=== PATIENT | female | born 1985 | race Hispanic/Latino ===

== ENCOUNTER 2018-09-21 21:42 | Emergency (ER) | payer OTHER ==
[2018-09-21 21:48] VITALS: BP 152/100
[2018-09-21 22:37] LABS: Hematocrit 41.1 % (30.3-42.9); Mean Corpuscular HGB Conc 34 % (30-34); Mean Corpuscular Volume 88 fl (79-97); Platelet Count 373 K/mm3 (140-440); Red Blood Count 4.65 M/mm3 (3.65-5.03); Red Cell Distribution Width 13.9 % (13.2-15.2)
[2018-09-21 23:11] LABS: BUN/Creatinine Ratio 22; Blood Urea Nitrogen 11 mg/dL (7-17); Calcium 9.8 mg/dL (8.4-10.2); Hemolysis Index 9
--- NOTE | 2018-09-21 23:51 | Emergency Department Report ---
ED Female HPI - General Chief complaint: Abdominal Pain Stated complaint: ABDOMINAL PAIN Source: patient Mode of arrival: Ambulatory Limitations: No Limitations - History of Present Illness Initial comments: This is a 33-year-old female presents with abnormal uterine bleeding and left lower quadrant pain. Patient reports menses 2-3 times per month. She was seen by her WET PRESS TENDER and after is prescribed ibuprofen for pelvic pain. Patient states she had surgery a few years back to remove scar tissue from C- sections which possibly caused pain. She believes the pain has returned. She reports pain as a stabbing sensation to left lower quadrant and currently 8 out of 10 on pain scale. She reports pain of 6 ability to have intercourse. There is some nausea. She denies vaginal discharge, frequency, urgency, dysuria, chest pain, or shortness of breath. MD Complaint: vaginal discharge, pelvic pain -: month(s) Location: LLQ Radiation: non-radiating Severity: moderate Severity scale (0 -10): 8 Quality: stabbing Consistency: intermittent Improves with: none Worsens with: intercourse Are you Now?: No Last Menstrual Period: 09/19/18 EDC: 06/26/19 Associated Symptoms: vaginal bleeding, abdominal pain. denies: vaginal discharge, nausea/vomiting, fever/chills, headaches, loss of appetite, dysuria, hematuria, rash, seizure, shortness of breath, syncope, weakness - Related Data Sexually active: Yes : 3 Para: 3 A: 0 Previous Rx's Medication Instructions Recorded Last Taken Type traMADol [Ultram 50 MG tab] 50 mg PO Q6HR PRN #12 tablet 09/22/18 Unknown Rx Allergies Allergy/AdvReac Type Severity Reaction Status Date / Time No Known Allergies Allergy Unverified 09/22/18 00:51 ED Review of Systems ROS: Stated complaint: ABDOMINAL PAIN Other details as noted in HPI Constitutional: denies: chills, fever Respiratory: denies: cough, shortness of breath, wheezing Cardiovascular: denies: chest pain, palpitations Gastrointestinal: abdominal pain. denies: nausea, diarrhea Genitourinary: abnormal menses. denies: urgency, dysuria, discharge Musculoskeletal: denies: back pain, joint swelling, arthralgia Neurological: denies: headache, weakness, paresthesias Psychiatric: denies: anxiety, depression ED Past Medical Hx - Past Medical History Hx Hypertension: Yes Hx Asthma: Yes - Surgical History Hx Cholecystectomy: Yes Additional Surgical History: 3 c sections and tubal ligation, appendix removal, hernia surgery - Social History Smoking Status: Never Smoker - Medications Home Medications: Home Medications Medication Instructions Recorded Confirmed Last Taken Type traMADol [Ultram 50 MG tab] 50 mg PO Q6HR PRN #12 tablet 09/22/18 Unknown Rx ED Physical Exam - General Limitations: No Limitations General appearance: alert, in no apparent distress, obese (morbidly obese) - Respiratory Respiratory exam: Present: normal lung sounds bilaterally. Absent: respiratory distress - Cardiovascular Cardiovascular Exam: Present: regular rate, normal rhythm. Absent: systolic murmur, diastolic murmur, rubs, gallop - GI/Abdominal GI/Abdominal exam: Present: soft, tenderness (left lower quadrant tenderness), normal bowel sounds. Absent: distended, guarding, rebound, rigid, organomegaly, mass - Back Exam Back exam: Absent: CVA tenderness (R), CVA tenderness (L) - Neurological Exam Neurological exam: Present: alert, oriented X3 - Psychiatric Psychiatric exam: Present: normal affect, normal mood - Skin Skin exam: Present: warm, dry, intact, normal color. Absent: rash ED Course Vital Signs 09/21/18 09/21/18 21:46 21:51 Temperature 97.2 F L 97 F L Pulse Rate 88 87 Respiratory 18 18 Rate Blood Pressure 152/100 152/100 O2 Sat by Pulse 98 98 Oximetry ED Medical Decision Making - Lab Data Result diagrams: 09/21/18 22:07 09/21/18 22:07 Lab Results 09/21/18 09/21/18 09/21/18 Range/Units 22:07 22:07 Unknown WBC 9.8 (4.5-11.0) K/mm3 RBC 4.65 (3.65-5.03) M/mm3 Hgb 14.0 (10.1-14.3) gm/dl Hct 41.1 (30.3-42.9) % MCV 88 (79-97) fl MCH 30 (28-32) pg MCHC 34 (30-34) % RDW 13.9 (13.2-15.2) % Plt Count 373 (140-440) K/mm3 Sodium 141 (137-145) mmol/L Potassium 4.4 (3.6-5.0) mmol/L Chloride 105.0 (98-107) mmol/L Carbon Dioxide 22 (22-30) mmol/L Anion Gap 18 mmol/L BUN 11 (7-17) mg/dL Creatinine 0.5 L (0.7-1.2) mg/dL Estimated GFR > 60 ml/min BUN/Creatinine Ratio 22 % Glucose 95 (65-100) mg/dL Calcium 9.8 (8.4-10.2) mg/dL Urine Color Yellow (Yellow) Urine Turbidity Clear (Clear) Urine pH 5.0 (5.0-7.0) Ur Specific [place] 1.021 (1.003-1.030) Urine Protein <15 mg/dl (Negative) mg/dL Urine Glucose (UA) Neg (Negative) mg/dL Urine Ketones Neg (Negative) mg/dL Urine Blood Lg (Negative) Urine Nitrite Neg (Negative) Ur Reducing Substances Not Reportable Urine Bilirubin Neg (Negative) Urine Ictotest Not Reportable Urine Urobilinogen < 2.0 (<2.0) mg/dL Ur Leukocyte Esterase Neg (Negative) Urine WBC (Auto) 2.0 (0.0-6.0) /HPF Urine RBC (Auto) 2.0 (0.0-6.0) /HPF U Epithel Cells (Auto) 3.0 (0-13.0) /HPF Urine Bacteria (Auto) 1+ (Negative) /HPF Urine Mucus Few /HPF Urine HCG, Qual Negative (Negative) - Radiology Data Radiology results: report reviewed FINAL REPORT EXAM: US PELVIS DUPLEX DOPPLER COMP HISTORY: LLQ tenderness, r/o ovarian torsion. TECHNIQUE: Transabdominal sonographic evaluation was performed of the female pelvis with and without color Doppler imaging. PRIORS: None. FINDINGS: The uterine myometrium is unremarkable with no focal lesion identified. The endometrial stripe is normal in thickness with no focal lesions identified. Survey of the adnexal regions reveal normal flow to both ovaries. No focal ovarian lesion appreciated. No free fluid within the posterior cul-de-sac. Measurements: Uterus: 9.1 x 3.2 x 5.0 cm Endometrial stripe: 3.5 mm Right ovary: 2.2 x 1.6 x 2.4 cm Left ovary: 2.3 x 2.2 x 2.1 cm. IMPRESSION: Unremarkable pelvic ultrasound, no evidence of ovarian torsion as queried. EXAM: CT ABDOMEN PELVIS WO CON HISTORY: LLQ tenderness. TECHNIQUE: CT evaluation performed of the abdomen and pelvis without IV or oral contrast administration. Coronal and sagittal imaging also provided for interpretation. PRIORS: Pelvic ultrasound obtained the same day. FINDINGS: Lower thorax: The lung bases are clear. The visualized portions of the heart are normal. Liver: No focal lesions identified of the liver. Hepatic steatosis. No intrahepatic biliary ductal dilation. Gallbladder/ biliary system: Surgical absence of the gallbladder. Spleen: No splenic lesions are seen. Pancreas: No pancreatic lesions are seen. No pancreatic duct dilation. Kidneys: No kidney lesions identified. 5-7 mm left inferior renal pelvis calculi. Adrenal glands: No adrenal masses. Vasculature: The abdominal and pelvic vasculature demonstrates an unremarkable noncontrasted appearance. Lymph nodes: No enlarged lymph nodes are seen in the abdomen or pelvis. Bowel, mesentery, peritoneum: No bowel obstruction. No colonic diverticulosis. No free intra- abdominal fluid or air. Urinary bladder: No calculi or wall thickening. Pelvis: Normal anatomy is noted. No masses. Abdominal wall: Focal soft tissue thickening at the anterior margin of the left inferior rectus abdominus (axial image 168). No focal fluid collection. Correlation with exam requested. Additional mild probable scarring in the ventral info infraumbilical soft tissues. Bones: No acute osseous abnormality. IMPRESSION: 5-7 mm left inferior pole renal calculi. The proximal renal pelvis is minimally prominent, however there are no ureteral calculi or dilation of the ureter. No acute inflammatory change of the gastrointestinal tract or adjacent to the pelvic viscera. Hepatic steatosis. Probable anterior central and left abdominal soft tissue scarring. - Medical Decision Making Patient was examined by me. Vitals are normal and patient is in no acute distress. Obtained labs, ultrasound of pelvic, and CT of abdomen and pelvis. All labs are unremarkable. Given tramadol 50 mg by mouth once while in ER. Radiograph dictated by radiologist report reviewed by myself. Unremarkable pelvic ultrasound, no evidence of ovarian torsion as queried. 5-7 mm left inferior pole renal calculi. The proximal renal pelvis is minimally prominent, however there are no ureteral calculi or dilation of the ureter. No acute inflammatory change of the gastrointestinal tract or adjacent to the pelvic viscera. Hepatic steatosis. Probable anterior central and left abdominal soft tissue scarring. Patient informed of results. Start tramadol for pain. Referral to urology for continued care. Plan discussed with patient to discharge home and treat outpatient. Patient discharged home in stable condition. Follow up with PCP in 2-3 days. Critical care attestation.: If time is entered above; I have spent that time in minutes in the direct care of this critically ill patient, excluding procedure time. ED Disposition Clinical Impression: Renal calculi, Left sided abdominal pain Disposition: TO HOME OR SELFCARE Is pt being admited?: No Does the pt Need Aspirin: No Condition: Stable Instructions: Abdominal Pain (ED) Additional Instructions: Increase fluid intake. Follow up with urology. Prescriptions: traMADol [Ultram 50 MG tab] 50 mg PO Q6HR PRN #12 tablet PRN Reason: Pain Referrals: FATMATA BRITT MD [Primary Care Provider] - 3-5 Days MALCOLM TEMPLETON MD [Staff Physician] - 3-5 Days [facility] [Provider Group] - 3-5 Days Forms: Work/School Release Form(ED) Time of Disposition: 02:03
[2018-09-22 00:21] LABS: HCG Qualitative,Urine Negative (Negative)
[2018-09-22 00:23] LABS: Bacteria,Urine 1+ /HPF (Negative); Bilirubin,Urine NEG (Negative); Blood,Urine LG (Negative); Color,Urine Yellow (Yellow); Mucus,Urine FEW /HPF; Protein,Urine <15 mg/dL mg/dL (Negative); Urobilinogen,Urine < 2.0 mg/dL (<2.0)
--- NOTE | 2018-09-22 01:29 | Ultrasound Report ---
FINAL REPORT EXAM: US PELVIS DUPLEX DOPPLER COMP HISTORY: LLQ tenderness, r/o ovarian torsion. TECHNIQUE: Transabdominal sonographic evaluation was performed of the female pelvis with and without color Doppler imaging. PRIORS: None. FINDINGS: The uterine myometrium is unremarkable with no focal lesion identified. The endometrial stripe is nor mal in thickness with no focal lesions identified. Survey of the adnexal regions reveal normal flow to both ovaries. No focal ovarian lesion appreciated. No free fluid within the posterior cul-de-sac. Measurements: Uterus: 9.1 x 3.2 x 5.0 cm Endometrial stripe: 3.5 mm Right ovary: 2.2 x 1.6 x 2.4 cm Left ovary: 2.3 x 2.2 x 2.1 cm. IMPRESSION: Unremarkable pelvic ultrasound, no evidence of ovarian torsion as queried.
--- NOTE | 2018-09-22 01:30 | Ultrasound Report ---
FINAL REPORT EXAM: US TRANSVAGINAL HISTORY: LLQ tenderness, r/o ovarian torsion TECHNIQUE: Transvaginal sonographic evaluation was performed of the female pelvis with and without c olor Doppler imaging. PRIORS: None. FINDINGS: The uterine myometrium is unremarkable with no focal lesion identified. The endometrial stripe is nor mal in thickness with no focal lesions identified. Survey of the adnexal regions reveal normal flow to both ovaries. No focal ovarian lesion appreciated. No free fluid within the posterior cul-de-sac. Probable scar. Measurements: Uterus: 9.1 x 3.2 x 5.0 cm Endometrial stripe: 3.5 mm Right ovary: 2.2 x 1.6 x 2.4 cm Left ovary: 2.3 x 2.2 x 2.1 cm. IMPRESSION: Unremarkable pelvic ultrasound, no evidence of ovarian torsion as queried.
--- NOTE | 2018-09-22 01:41 | Cat Scan Report ---
FINAL REPORT EXAM: CT ABDOMEN PELVIS WO CON HISTORY: LLQ tenderness. TECHNIQUE: CT evaluation performed of the abdomen and pelvis without IV or oral contrast administrat ion. Coronal and sagittal imaging also provided for interpretation. PRIORS: Pelvic ultrasound obtained the same day. FINDINGS: Lower thorax: The lung bases are clear. The visualized portions of the heart are normal. Liver: No focal lesions identified of the liver. Hepatic steatosis. No intrahepatic biliary ductal di lation. Gallbladder/ biliary system: Surgical absence of the gallbladder. Spleen: No splenic lesions are seen. Pancreas: No pancreatic lesions are seen. No pancreatic duct dilation. Kidneys: No kidney lesions identified. 5-7 mm left inferior renal pelvis calculi. Adrenal glands: No adrenal masses. Vasculature: The abdominal and pelvic vasculature demonstrates an unremarkable noncontrasted appearan ce. Lymph nodes: No enlarged lymph nodes are seen in the abdomen or pelvis. Bowel, mesentery, peritoneum: No bowel obstruction. No colonic diverticulosis. No free intra-abdomina l fluid or air. Urinary bladder: No calculi or wall thickening. Pelvis: Normal anatomy is noted. No masses. Abdominal wall: Focal soft tissue thickening at the anterior margin of the left inferior rectus abdom inus (axial image 168). No focal fluid collection. Correlation with exam requested. Additional mild p robable scarring in the ventral info infraumbilical soft tissues. Bones: No acute osseous abnormality. IMPRESSION: 5-7 mm left inferior pole renal calculi. The proximal renal pelvis is minimally prominent, however th ere are no ureteral calculi or dilation of the ureter. No acute inflammatory change of the gastrointestinal tract or adjacent to the pelvic viscera. Hepatic steatosis. Probable anterior central and left abdominal soft tissue scarring.
[2018-09-22] MEDS ORDERED: TORADOL IM ONE (02:04)
[2018-09-22] MEDS ORDERED: ULTRAM PO ONE (02:05)
== END 2018-09-22 02:15 | disposition home or self-care (01) ==
LOC: ED 21:42
DX: N20.0 Calculus of kidney (principal); I10 Essential (primary) hypertension; J45.909 Unspecified asthma, uncomplicated; Z90.49 Acquired absence of other specified parts of digestive tract
CPT/HCPCS: 36415; 74176; 76830; 80048; 81001; 81025; 85027; 93975

== ENCOUNTER 2018-12-02 07:50 | Day surgery (SDC) | payer OTHER ==
[2018-12-02] MEDS ORDERED: ZOFRAN IV PRN (09:43)
[2018-12-02] MEDS ORDERED: DILAUDID IV PRN (09:43)
[2018-12-02] MEDS ORDERED: DEMEROL IV PRN (09:43)
[2018-12-02] MEDS ORDERED: NARCAN 0.4 MG/1 ML IV PRN (09:43)
[2018-12-02] MEDS ORDERED: SUBLIMAZE IV PRN (09:43)
--- NOTE | 2018-12-02 09:43 | Anesthesia Day of Surgery ---
Anesthesia Day of Surgery - Day of Surgery Patient Examined: Yes Patient H&P Reviewed: Yes Patient is NPO: Yes Beta Blockers: No Cardiac Clearance: No Pulmonary Clearance: No
--- NOTE | 2018-12-02 09:43 | Anesthesia Consultation ---
Anesthesia Consult and Med Hx - Airway Anesthetic Teeth Evaluation: Good ROM Head & Neck: Adequate Mental/Hyoid Distance: Adequate Mallampati Class: Class II Intubation Access Assessment: Good - Pulmonary Exam CTA: Yes - Cardiac Exam Cardiac Exam: RRR - Pre-Operative Health Status ASA Pre-Surgery Classification: ASA3 Proposed Anesthetic Plan: General - Pulmonary Hx Smoking: No Hx Asthma: Yes (INHALER PRN) Hx Sleep Apnea: No - Cardiovascular System Hx Hypertension: (NO MEDS) - Other Systems Hx Cancer: No
[2018-12-02] MEDS ORDERED: LACTATED RINGERS 1,000 ML IV SCH (10:00)
[2018-12-02] MEDS ORDERED: TRANSDERM-SCOP TD NR (10:00)
[2018-12-02] MEDS ORDERED: ANCEF/STERILE WATER 2 GM/20 ML IV NR (10:00)
[2018-12-02] MEDS ORDERED: VERSED IV NR (10:00)
[2018-12-02] MEDS ORDERED: DILAUDID ONE (11:04)
[2018-12-02] MEDS ORDERED: DIPRIVAN 10 MG/ML IV ONE (11:04)
[2018-12-02] MEDS ORDERED: XYLOCAINE MPF 2% ONE (11:04)
--- NOTE | 2018-12-02 11:55 | Short Stay Summary ---
Short Stay Documentation Date of service: 12/02/18 - History H&P: obtained from office - Allergies and Medications Current Medications: Allergies aspirin Allergy (Verified 11/22/18 14:42) Itching Home Medications Medication Instructions Recorded Confirmed Last Taken Type ALBUTEROL Inhaler(NF) [VENTOLIN 1 puff IH PRN PRN 11/22/18 11/22/18 Unknown History Inhaler(NF)] Active Medications Cefazolin Sodium (Ancef/Sterile Water 2 Gm/20 Ml) 2 gm IV PREOP NR Stop: 12/02/18 13:00 Fentanyl (Sublimaze) 50 mcg IV Q5MIN PRN PRN Reason: Pain , Severe (7-10) Stop: 12/02/18 20:00 Hydromorphone HCl (Dilaudid) 0.5 mg IV Q10MIN PRN PRN Reason: Pain , Severe (7-10) Stop: 12/02/18 20:00 Lactated Ringer's (Lactated Ringers) 1,000 mls @ 42 mls/hr IV DIRECT MAGALY Last Admin: 12/02/18 09:50 Dose: 42 mls/hr Documented by: Meperidine HCl (Demerol) 25 mg IV ONCE PRN PRN Reason: Shivering Midazolam HCl (Versed) 2 mg IV PREOP NR Stop: 12/02/18 23:59 Last Admin: 12/02/18 11:03 Dose: 2 mg Documented by: Naloxone HCl (Narcan 0.4 Mg/1 Ml) 0.1 mg IV Q2MIN PRN PRN Reason: Res Rate </= 8 or 02 SAT < 92% Ondansetron HCl (Zofran) 4 mg IV ONCE PRN PRN Reason: Nausea And Vomiting Scopolamine (Transderm-Scop) 1 each TD PREOP NR Stop: 12/02/18 16:00 Last Admin: 12/02/18 10:13 Dose: 1 each Documented by: - Brief post op/procedure progress note Date of procedure: 12/02/18 Pre-op diagnosis: left renal stones x2----6& 8mm Post-op diagnosis: same Procedure: ESWL Anesthesia: GETA Surgeon: MALCOLM TEMPLETON Estimated blood loss: minimal Condition: stable - Hospital course Hospital course: VOLODYMYR OCONNOR, POST OP INFO ON CHART - Disposition Condition at discharge: Stable Disposition: DC-01 TO HOME OR SELFCARE Short Stay Discharge Plan Follow up with: FATMATA BRITT MD [Primary Care Provider] - 7 Days
[2018-12-02] MEDS ORDERED: ZOFRAN ONE (12:07)
[2018-12-02] MEDS ORDERED: BENADRYL ONE (12:14)
[2018-12-02] MEDS ORDERED: BENADRYL IV ONE (12:44)
--- NOTE | 2018-12-02 13:20 | Operative Report ---
PREOPERATIVE DIAGNOSIS: Left renal calculi x 2. POSTOPERATIVE DIAGNOSIS: Left renal calculi x 2. PROCEDURE: Extracorporal shock wave lithotripsy (stage procedure). SURGEON: Bhavin Woo MD ANESTHESIA: General. ESTIMATED BLOOD LOSS: Minimal. FLUIDS: Crystalloid. COMPLICATIONS: No complications. INDICATIONS: This patient is a 33-year-old female seen by Dr. Stokes in the office and was found to have 2 stones in the left kidney, 6 mm and 8 mm. Discussed options and she agreed to proceed with surgical intervention. DESCRIPTION OF PROCEDURE: The patient was taken to the operative suite and placed in the supine position. After adequate general anesthesia, her stones were localized in 2 planes using fluoroscopy. They were actually close in distance and therefore could be treated together. Extracorporal shock wave lithotripsy was administered with a maximum kV of 7 2500 shocks with 5-minute renal pause after 200 shocks was performed. Adequate fragmentation could be appreciated. The patient tolerated the procedure well. She was extubated and taken to recovery room. She will go home on [place] and strain her urine for stone. JOB# [id number] ALEXAC/NTS
[2018-12-02] MEDS ORDERED: NORCO 5/325 PO PRN (14:24)
[2018-12-02] MEDS ORDERED: PERCOCET 5/325 ONE (14:29)
--- NOTE | 2018-12-02 14:31 | Post Anesthesia Evaluation ---
- Post Anesthesia Evaluation Patient Participated: Yes Airway Patent: Yes Stable Respiratory Function: Yes Nausea/Vomiting: No Temp > 96.8F: Yes Pain Manageable: Yes Adequeate Hydration: Yes Anesthesia Complications: No
[2018-12-02 14:44] VITALS: BP 105/54
== END 2018-12-02 07:51 | disposition home or self-care (01) ==
LOC: OR 07:50
PROVIDERS: ATTEND Urology
DX: N20.0 Calculus of kidney (principal); G43.909 Migraine, unspecified, not intractable, without status migrainosus; J45.909 Unspecified asthma, uncomplicated; F41.9 Anxiety disorder, unspecified; K21.9 Gastro-esophageal reflux disease without esophagitis; Z98.51 Tubal ligation status; Z88.6 Allergy status to analgesic agent; Z90.49 Acquired absence of other specified parts of digestive tract; Z79.899 Other long term (current) drug therapy; Z98.890 Other specified postprocedural states; Z98.891 History of uterine scar from previous surgery
CPT/HCPCS: 50590; 81025; J0690; J1170; J1200; J2250; J2405; J2704; J7120

== ENCOUNTER 2019-03-01 14:23 | Day surgery (SDC) | payer OTHER ==
[2019-03-01] MEDS ORDERED: LACTATED RINGERS 1,000 ML IV SCH (15:55)
[2019-03-01] MEDS ORDERED: LACTATED RINGERS 1,000 ML ONE (16:09)
[2019-03-01] MEDS ORDERED: TRANSDERM-SCOP TD NR (16:15)
[2019-03-01] MEDS ORDERED: VERSED IV NR (16:15)
[2019-03-01] MEDS ORDERED: ANCEF/STERILE WATER 2 GM/20 ML IV NR (16:30)
[2019-03-01] MEDS ORDERED: SUBLIMAZE IV PRN (16:42)
--- NOTE | 2019-03-01 16:44 | Anesthesia Consultation ---
Anesthesia Consult and Med Hx Date of service: 03/01/19 - Airway Anesthetic Teeth Evaluation: Good ROM Head & Neck: Adequate Mental/Hyoid Distance: Adequate Mallampati Class: Class III Intubation Access Assessment: Possibly Difficult - Pulmonary Exam CTA: Yes - Cardiac Exam Cardiac Exam: RRR - Pre-Operative Health Status ASA Pre-Surgery Classification: ASA3 Proposed Anesthetic Plan: General - Pulmonary Hx Asthma: Yes (last inhaler use in December 2018) Hx Respiratory Symptoms: No Hx Sleep Apnea: No - Cardiovascular System Hx Hypertension: Yes Hx Heart Attack/AMI: No - Central Nervous System Hx Seizures: No CVA: No Hx Back Pain: Yes (FROM STONE) - Gastrointestinal Hx Gastroesophageal Reflux Disease: No - Endocrine Hx Renal Disease: No Hx Liver Disease: No Hx Insulin Dependent Diabetes: No Hx Non-Insulin Dependent Diabetes: No Hx Thyroid Disease: No - Other Systems Hx Obesity: Yes - Additional Comments Anesthesia Medical History Comments: Hx PONV which responded well to scopolamine patch.
--- NOTE | 2019-03-01 16:44 | Anesthesia Day of Surgery ---
Anesthesia Day of Surgery - Day of Surgery Patient Examined: Yes Patient H&P Reviewed: Yes Patient is NPO: Yes
[2019-03-01] MEDS ORDERED: ZOFRAN ONE ×2 (18:22→20:37)
[2019-03-01] MEDS ORDERED: SUBLIMAZE ONE (18:22)
[2019-03-01] MEDS ORDERED: DIPRIVAN 10 MG/ML IV ONE (18:22)
[2019-03-01] MEDS ORDERED: DECADRON ONE (18:22)
[2019-03-01] MEDS ORDERED: OMNIPAQUE 300 MG/50 ML (CATH LAB) IV ONE (19:08)
--- NOTE | 2019-03-01 20:05 | Short Stay Summary ---
Short Stay Documentation Date of service: 03/01/19 - History H&P: obtained from office - Allergies and Medications Current Medications: Allergies aspirin Allergy (Verified 11/22/18 14:42) Itching silk tape Allergy (Uncoded 03/01/19 16:27) Itching Home Medications Medication Instructions Recorded Confirmed Last Taken Type ALBUTEROL Inhaler(NF) [VENTOLIN 1 puff IH PRN PRN 11/22/18 02/23/19 Unknown History Inhaler(NF)] HYDROcodone/APAP 5-325 [[place] 1 each PO Q6HR PRN 02/23/19 03/01/19 02/22/19 09:00 History 5/325] Loratadine [Claritin] 10 mg PO DAILY 02/23/19 03/01/19 02/28/19 09:00 History Ranitidine HCl [Zantac] 150 mg PO BID 02/23/19 03/01/19 02/24/19 09:00 History traMADol [Ultram] 50 mg PO Q4HR PRN 02/23/19 03/01/19 02/22/19 09:00 History Active Medications Cefazolin Sodium (Ancef/Sterile Water 2 Gm/20 Ml) 2 gm IV PREOP NR Stop: 03/01/19 23:59 Fentanyl (Sublimaze) 50 mcg IV Q5MIN PRN PRN Reason: Pain , Severe (7-10) Lactated Ringer's (Lactated Ringers) 1,000 mls @ 75 mls/hr IV DIRECT MAGALY Last Admin: 03/01/19 16:10 Dose: 75 mls/hr Documented by: Midazolam HCl (Versed) 2 mg IV PREOP NR Stop: 03/01/19 23:59 Last Admin: 03/01/19 16:39 Dose: 2 mg Documented by: Scopolamine (Transderm-Scop) 1 each TD PREOP NR Stop: 03/01/19 23:59 Last Admin: 03/01/19 16:20 Dose: 1 each Documented by: - Brief post op/procedure progress note Date of procedure: 03/01/19 Pre-op diagnosis: left low back pain left renal stone Post-op diagnosis: same Procedure: left urs, laser frag, stent 6x26 Anesthesia: GETA Findings: lower polse stone, ?mild upj; hydro Surgeon: FARZANA HUERTA Estimated blood loss: minimal Pathology: none Condition: stable - Hospital course Hospital course: [facility]pac[place] - Disposition Condition at discharge: Good Disposition: DC-01 TO HOME OR SELFCARE Short Stay Discharge Plan Activity: advance as tolerated Follow up with: FARZANA HUERTA MD [Staff Physician] - 7 Days
[2019-03-01] MEDS ORDERED: REGLAN IV ONE (20:36)
[2019-03-01] MEDS ORDERED: REGLAN ONE (20:37)
[2019-03-01] MEDS ORDERED: ZOFRAN IV ONE (20:37)
[2019-03-01] MEDS ORDERED: BENADRYL ONE (20:48)
[2019-03-01] MEDS ORDERED: BENADRYL IV ONE (21:00)
[2019-03-01 21:34] VITALS: BP 122/82
--- NOTE | 2019-03-01 22:40 | Post Anesthesia Evaluation ---
- Post Anesthesia Evaluation Patient Participated: Yes Airway Patent: Yes Stable Respiratory Function: Yes Nausea/Vomiting: Yes (improved with IV antiemetics) Temp > 96.8F: Yes Pain Manageable: Yes Adequeate Hydration: Yes Anesthesia Complications: No
--- NOTE | 2019-03-02 09:45 | Fluoroscopy Report ---
13 fluoroscopic images submitted Indication: Intraoperative localization Impression: 13 images of the abdomen were submitted for documentation purposes with radiology emeterio farias. Bilateral retrograde urography submitted. Please refer to the operative note for complete det ails. Fluoroscopic time: 1 minute 49 seconds Signer Name: Rell Wilson MD Signed: 03/02/2019 9:40 AM Workstation Name: [id number]
--- NOTE | 2019-03-14 14:09 | Operative Report ---
PREOPERATIVE DIAGNOSIS: Left renal stone in mild ureteropelvic junction. POSTOPERATIVE DIAGNOSIS: Left renal stone in mild ureteropelvic junction. PROCEDURES: Cystoscopy; left ureteroscopy; left renal stone Holmium laser fragmentation. Left ureteral stone, Holmium laser fragmentation and left ureteral stent placement. SURGEON: Parth Stokes MD ANESTHESIA: General. SPECIMENS: None. ESTIMATED BLOOD LOSS: Minimal. COMPLICATIONS: None. FINDINGS: Left renal lower pole stone. ESTIMATED BLOOD LOSS: Minimal. CLINICAL INDICATIONS: The patient was counseled on RCBA, antibiotics, SCDs. The patient had history of left back pain, was counseled that left back pain, nonobstructive stone was non-genitourinary, not from the source, discussed we could electively treat, attempted shock wave lithotripsy, did not break it up but discussed option of observation. The patient wanted very aggressive treatment, wanted to go ahead and proceed with ureteroscopy to try to break up the stone. To break up the stone further, the patient has undergone shock wave lithotripsy previously with some fragmentation, some passage, but had two stones, 6 and 8 mm originally. DESCRIPTION OF PROCEDURE: The patient was transferred to the OR suite in supine position, anesthesia, dorsal lithotomy, prepped and draped in our standard fashion. A 22-Czech scope passed, normal vaginal urethra. Pancystoscopy 30 and 70-degree lens demonstrated no tumors, lesions or other abnormality. Right retrograde pyelogram within normal limits. Left retrograde pyelogram with maybe some renal pelvis ____ and some calyceal fullness, possible mild UPJ. Glidewire passed. Second wire passed, Glidewire passed. One Glidewire was then passed, 0.035 Glidewire. Rigid ureteroscope was passed up the ureter up towards the UPJ could visualize through the UPJ. UPJ just seemed mildly narrow, but not excessively narrow, but some fullness of the collecting system and calyceal fullness. At this point, a second wire was placed. Flexible scope was passed up to the renal pelvis, inspected the upper and mid pole calices very well. No stones and inspected the lower pole calyces. It was at an angle that was difficult to access. We were able to see the portion of the stone. Holmium laser fiber passed. The stone was fragmented into smaller and smaller pieces, seemed to be adequately fragmented into very small pieces and when visualization was limited at this point, the procedure was stopped. Scope withdrawn. Wire backloaded on the cystoscope. A 6-Czech double-J stent was passed over the wire under direct and fluoroscopic visualization. When the wire and string was removed, there was nice proximal J, nice distal J within the bladder, bladder drained. The patient awakened and transferred to PACU in good and stable condition. PLAN: This was staged for future stent removal. JOB# [id number] ATS/NTS
== END 2019-03-01 14:24 | disposition home or self-care (01) ==
LOC: OR 14:23
PROVIDERS: ATTEND Urology
DX: N20.2 Calculus of kidney with calculus of ureter (principal); I10 Essential (primary) hypertension; G43.909 Migraine, unspecified, not intractable, without status migrainosus; F41.9 Anxiety disorder, unspecified; E66.9 Obesity, unspecified; J45.909 Unspecified asthma, uncomplicated; Z87.440 Personal history of urinary (tract) infections; Z88.6 Allergy status to analgesic agent; Z88.8 Allergy status to other drugs, medicaments and biological substances; Z79.899 Other long term (current) drug therapy; Z90.49 Acquired absence of other specified parts of digestive tract; Z98.51 Tubal ligation status; Z90.710 Acquired absence of both cervix and uterus; Z68.41 Body mass index [BMI] 40.0-44.9, adult; Z98.890 Other specified postprocedural states
CPT/HCPCS: 52356; 74420; C1726; C1758; C1769; C2617; J1100; J1200; J2250; J2405; J2704; J2765; J3010; J7120; Q9967

== ENCOUNTER 2019-03-21 14:51 | Inpatient (IN) | payer OTHER ==
[2019-03-21] MEDS ORDERED: NACL 0.9% 500 ML 500 ML IV ONE (16:10)
[2019-03-21] MEDS ORDERED: DILAUDID IV ONE (16:10)
[2019-03-21] MEDS ORDERED: ZOFRAN IV ONE (16:10)
--- NOTE | 2019-03-21 16:14 | Emergency Department Report ---
<CRYS HOLLINGSWORTH - Last Filed: 03/21/19 19:49> ED Abdominal Pain HPI - General Chief Complaint: Abdominal Pain Stated Complaint: KIDNEY STONES Time Seen by Provider: 03/21/19 16:02 Source: patient, RN notes reviewed, old records reviewed Mode of arrival: Ambulatory Limitations: No Limitations - History of Present Illness Initial Comments: This is a 33-year-old female. This patient is not known to this provider previously. Her urology specialist is Dr. Peacock Has a history of obesity, and kidney stones. Also has a history of asthma, migraines, hypertension, appendectomy, cholecystectomy, tubal ligation Patient was taken to the operating room by the aforementioned urology specialist on 03/14/2019. Patient had a cystoscopy, left ureteroscopy, left renal stone laser fragmentation, and left ureteral stent placement. Apparently, patient has been having chronic left-sided back pain, and was counseled that her left back pain was likely not due to her nonobstructive kidney stone. The patient had requested elective treatment, and shock wave lithotripsy was performed, and did not break up the stone. Patient reportedly want very aggressive treatment, and agreed to proceed with ureteroscopy to break up the stone. Patient had a left retrograde pyelogram performed, which showed some possible calyceal fullness, p ossible mild UPJ. The UPJ was documented is seeming mildly narrowed, but not excessively narrow. The stone was fragmented into smaller pieces, and was documented to be adequately fragmented into small pieces, and the procedure was subsequently terminated. Today, the patient presents to the ER with a complaint of nontraumatic left- sided flank pain. The pain started last night. It is sharp and radiates to the left lower quadrant. It is intermittent. It increases with palpation. It decreases with rest. No fevers. Positive nausea and vomiting. No dysuria. Patient denies other complaints. MD Complaint: flank pain, other -: Gradual, hour(s) Location: L flank Radiation: LLQ Severity: moderate Quality: cramping, other Consistency: other Improves With: rest Worsens With: other Context: recent surgery/procedure Associated Symptoms: nausea, vomiting. denies: fever, chills - Related Data Home Medications Medication Instructions Recorded Confirmed Last Taken ALBUTEROL Inhaler(NF) [VENTOLIN 1 puff IH PRN PRN 11/22/18 02/23/19 Unknown Inhaler(NF)] HYDROcodone/APAP 5-325 [[place] 1 each PO Q6HR PRN 02/23/19 03/01/19 02/22/19 09:00 5/325] Loratadine [Claritin] 10 mg PO DAILY 02/23/19 03/01/19 02/28/19 09:00 Ranitidine HCl [Zantac] 150 mg PO BID 02/23/19 03/01/19 02/24/19 09:00 traMADol [Ultram] 50 mg PO Q4HR PRN 02/23/19 03/01/19 02/22/19 09:00 Previous Rx's Medication Instructions Recorded Last Taken Type HYDROcodone/APAP 10-325 [[place] 0.5 - 1 each PO Q6HR PRN #30 tablet 03/01/19 Unknown Rx 10-325 mg TAB] cefUROXime [Ceftin] 500 mg PO Q12H #20 tablet 03/01/19 Unknown Rx Allergies Allergy/AdvReac Type Severity Reaction Status Date / Time aspirin Allergy Itching Verified 11/22/18 14:42 silk tape Allergy Itching Uncoded 03/01/19 16:27 ED Review of Systems Constitutional: malaise, weakness. denies: fever Eyes: denies: eye discharge ENT: denies: epistaxis Respiratory: denies: cough Cardiovascular: denies: chest pain Gastrointestinal: abdominal pain, nausea, vomiting Genitourinary: denies: dysuria Musculoskeletal: back pain Skin: denies: lesions Neurological: weakness Psychiatric: anxiety ED Past Medical Hx - Past Medical History Previous Medical History?: Yes Hx Hypertension: Yes Hx Heart Attack/AMI: No Hx GERD: Yes Hx Liver Disease: No Hx Renal Disease: No Hx Headaches / Migraines: Yes (MIGRAINES) Hx Seizures: No Hx Kidney Stones: Yes Hx Asthma: Yes (last inhaler use in December 2018) Hx HIV: No - Surgical History Past Surgical History?: Yes Hx Cholecystectomy: Yes Hx Appendectomy: Yes Additional Surgical History: 3 c sections and tubal ligation, appendix removal, hernia surgery - Social History Smoking Status: Former Smoker Substance Use Type: Alcohol - Medications Home Medications: Home Medications Medication Instructions Recorded Confirmed Last Taken Type ALBUTEROL Inhaler(NF) [VENTOLIN 1 puff IH PRN PRN 11/22/18 02/23/19 Unknown History Inhaler(NF)] HYDROcodone/APAP 5-325 [[place] 1 each PO Q6HR PRN 02/23/19 03/01/19 02/22/19 09:00 History 5/325] Loratadine [Claritin] 10 mg PO DAILY 02/23/19 03/01/19 02/28/19 09:00 History Ranitidine HCl [Zantac] 150 mg PO BID 02/23/19 03/01/19 02/24/19 09:00 History traMADol [Ultram] 50 mg PO Q4HR PRN 02/23/19 03/01/19 02/22/19 09:00 History HYDROcodone/APAP 10-325 [[place] 0.5 - 1 each PO Q6HR PRN #30 tablet 03/01/19 Unknown Rx 10-325 mg TAB] cefUROXime [Ceftin] 500 mg PO Q12H #20 tablet 03/01/19 Unknown Rx ED Physical Exam - General Limitations: No Limitations General appearance: alert, in distress, obese - Head Head exam: Present: atraumatic, normocephalic - Eye Eye exam: Present: normal appearance, EOMI. Absent: nystagmus - ENT ENT exam: Present: normal exam, normal orophraynx, mucous membranes moist, normal external ear exam - Neck Neck exam: Present: normal inspection, full ROM. Absent: tenderness, meningismus - Respiratory Respiratory exam: Present: normal lung sounds bilaterally. Absent: respiratory distress - Cardiovascular Cardiovascular Exam: Present: normal rhythm, tachycardia, normal heart sounds. Absent: systolic murmur, diastolic murmur, rubs, gallop - GI/Abdominal GI/Abdominal exam: Present: soft, tenderness, other (there is left lower quadrant tenderness. There is no rebound, guarding or peritoneal signs.). Absent: distended, guarding, rebound, rigid, pulsatile mass - Extremities Exam Extremities exam: Present: normal inspection, full ROM, other (2+ pulses noted in the bilateral upper, lower extremities. Compartments soft. No long bony tenderness. The pelvis is stable.). Absent: pedal edema, joint swelling, calf tenderness - Back Exam Back exam: Present: normal inspection - Neurological Exam Neurological exam: Present: alert, oriented X3, other (Extraocular movements intact. Tongue midline. No facial droop. Facial sensation intact to light touch in the V1, V2, V3 distribution bilaterally. 5 and 5 strength in 4 extremities.. Sensation is intact to light touch in 4 extremities.). Absent: motor sensory deficit - Psychiatric Psychiatric exam: Present: anxious - Skin Skin exam: Present: warm, dry, intact, normal color. Absent: rash ED Course - Reevaluation(s) Reevaluation #1: 03/21/19 17:31 Differential diagnosis, including but not limited to: Complication from ureteral stent, ureteric spasm, infection, perforation, acute on chronic back pain Assessment and plan: 33-year-old female, mildly obese, with documented history of chronic back pain, status post recent ureter procedure. She is afebrile with reassuring vital signs with the exception of tachycardia and elevated blood pressure. These are likely secondary to pain and discomfort. Patient is given hydromorphone, and she appears to be much improved. Laboratory studies have been requested, including urinalysis. CT scan of the abdomen and pelvis has been ordered. I have consulted her covering urologist, Dr. Donahue, who recommends the aforementioned and CT scan of the abdomen and pelvis and then call back. Suggest that ureteral spasm/colic may be present. Reevaluation #2: 03/21/19 19:50 Patient having continued pain, despite multiple pain medications, including hydromorphone, morphine, and intravenous lidocaine. CT scan shows the following findings: 1. Marked left pelvocaliectasis and ureterectasis despite a left ureteral stent. Nonobstructive left nephrolithiasis. 2. 6.3 cm cystic mass in the left ovary is likely ovarian. There is mild associated free fluid in the left adnexa. The left ureter appears to change caliber at the level of the cyst. 3. Moderate diffuse fatty infiltration of the liver. Discussed these findings with urology on-call, Dr. Gayla Donahue,. The CT scan documents that the stent is in good position. Dr. Donahue advises that no acute urologic intervention is required. He further advises that he will be happy to see the patient tomorrow in consultation. We both agreed no emergent urologic evaluation is indicated at this time. He further advises that nurses who work with his colleagues in his practice have indicated that "this patient likes pain medicine." Given CT scan findings, a dedicated pelvic ultrasound will be obtained. Patient is tachycardic, with a leukocytosis, therefore, ruling in for systemic inflammatory response syndrome. She will be therefore be covered empirically with fluids, antibiotics, lactic acid and blood cultures to be obtained. Gynecology rayon coner will be paged. Care will be transferred to the oncoming physician, Dr. Marcia Eldridge, to follow-up on pelvic ultrasound. Anticipate admission for pain control, serial abdominal exams, and a gynecology/urology consultation. ED Medical Decision Making - Lab Data Result diagrams: 03/21/19 17:17 03/21/19 17:17 - Radiology Data Radiology results: report reviewed, image reviewed Print Report Referring Physician: CRYS HOLLINGSWORTH Patient Name: EDILBERTO BECKETT Date of : 1985 Sex: Female Report Date: 2019-03-21 Report Status: [place] [address] Cat Scan Report Signed Patient: EDILBERTO BECKETT MR#: [id number] 1 : 1985 Acct:[id number] Age/Sex: 33 / F ADM Date: 03/21/19 Loc: ED Attending Dr: Ordering Physician: CRYS HOLLINGSWORTH MD Date of Service: 03/21/19 Procedure(s): CT abdomen pelvis w con Accession Number(s): [id number] cc: CRYS HOLLINGSWORTH MD CT abdomen pelvis w con INDICATION / CLINICAL INFORMATION: Left flank pain since last night; status post procedure with ureteral stent placement 2 weeks ago.. TECHNIQUE: All CT scans at this location are performed using CT dose reduction for ALARA by means of automated exposure control. COMPARISON: None. FINDINGS: ABDOMEN: There is a double-J left ureteral stent in good position radiographically. There are multiple small stone fragments in the lower pole left pelvicalyceal system. There is marked left pelvocaliectasis and ureterectasis despite the stent. The right kidney is normal. The gallbladder is surgically absent. There is moderate diffuse fatty infiltration of the liver. The bile ducts, pancreas, spleen, adrenal glands and bowel are normal. No adenopathy is seen. The lung bases are clear. PELVIS: There is a 6.3 cm ovoid cystic lesion in the left ovary with a slightly thickened wall. There is mild free fluid in the left adnexa. The uterus and right adnexa are unremarkable. There is no evidence of appendicitis or diverticulitis. The left ureter does not appear dilated past the level of the adnexal cyst. The distal right ureter and urinary bladder are normal. IMPRESSION: 1. Marked left pelvocaliectasis and ureterectasis despite a left ureteral stent. Nonobstructive left nephrolithiasis. 2. 6.3 cm cystic mass in the left ovary is likely ovarian. There is mild associated free fluid in the left adnexa. The left ureter appears to change caliber at the level of the cyst. 3. Moderate diffuse fatty infiltration of the liver. Signer Name: Mao Sawant MD Signed: 03/21/2019 7:35 PM Workstation Name: [id number] Transcribed By: RT Dictated By: Mao Sawant MD Electronically Authenticated By: Mao Sawant MD Signed Date/Time: 03/21/191934 ED Disposition Clinical Impression: Abdominal pain Qualifiers: Abdominal location: left lower quadrant Qualified Code(s): R10.32 - Left lower quadrant pain Disposition: DC-09 OP ADMIT IP TO THIS HOSP Is pt being admited?: Yes Condition: Good Instructions: Abdominal Pain (ED) Referrals: PRIMARY CARE, [Primary Care Provider] - 3-5 Days <JESSICA ELDRIDGE - Last Filed: 03/21/19 22:10> ED Review of Systems ROS: Stated complaint: KIDNEY STONES Other details as noted in HPI ED Course Vital Signs 03/21/19 03/21/19 03/21/19 14:55 17:08 19:27 Temperature 98.1 F Pulse Rate 108 H 101 H Respiratory 18 16 22 Rate Blood Pressure 159/109 O2 Sat by Pulse 99 100 Oximetry 03/21/19 19:30 Temperature Pulse Rate 81 Respiratory 25 H Rate Blood Pressure 137/80 O2 Sat by Pulse 100 Oximetry ED Medical Decision Making - Lab Data Result diagrams: 03/21/19 17:17 03/21/19 17:17 - Medical Decision Making Patient is a 33 years old female signed out to me by my colleague Dr. Hollingsworth. Patient presented to the ER complaining of left flank pain that started last night. CT scan of the abdomen and pelvis showed a left ovarian cyst and recommended ultrasound. Ultrasound showed a 4.5 cm complex mass in the left adnexa area. When I discuss this finding with the patient patient stated that she already know about this cyst as she was informed by her OB doctor at [facility]. Ultrasound did not show any evidence of ovarian torsion and no free fluid in the pelvis so I think this is not a cause for her current symptoms. I discussed by Dr. Hollingsworth patient will need to be admitted for pain control. I discussed the patient with , who agreed to date the patient to medical service. Critical care attestation.: If time is entered above; I have spent that time in minutes in the direct care of this critically ill patient, excluding procedure time.
[2019-03-21 17:40] LABS: Basophils # (Auto) 0.1 K/mm3 (0.0-0.1); Basophils % (Auto) 0.7 % (0.0-1.8); Eosinophils % (Auto) 0.2 % (0.0-4.3); Hematocrit 41.4 % (30.3-42.9); Hemoglobin 13.9 gm/dl (10.1-14.3); Lymphocytes # (Auto) 1.3 K/mm3 (1.2-5.4); Lymphocytes % (Auto) 9.7 % (13.4-35.0); Mean Corpuscular HGB Conc 34 % (30-34); Mean Corpuscular Volume 89 fl (79-97); Monocytes # (Auto) 0.6 K/mm3 (0.0-0.8); Monocytes % (Auto) 4.6 % (0.0-7.3); Platelet Count 403 K/mm3 (140-440); Red Blood Count 4.68 M/mm3 (3.65-5.03); Red Cell Distribution Width 14.2 % (13.2-15.2)
[2019-03-21 17:54] LABS: Alanine Aminotransferase 14 units/L (7-56); BUN/Creatinine Ratio 13; Blood Urea Nitrogen 9 mg/dL (7-17); Calcium 9.1 mg/dL (8.4-10.2); Hemolysis Index 5
[2019-03-21 17:57] LABS: INR 0.96 (0.87-1.13)
[2019-03-21 17:58] LABS: Bilirubin,Direct < 0.2 mg/dL (0-0.2)
[2019-03-21] MEDS ORDERED: MORPHINE IV ONE (18:22)
[2019-03-21] MEDS ORDERED: XYLOCAINE CARDIAC IV ONE ×2 (18:27→19:00)
[2019-03-21] MEDS ORDERED: NACL 0.9% IV SCH ×2 (19:00)
[2019-03-21] MEDS ORDERED: XYLOCAINE CARDIAC IV SCH ×2 (19:00)
[2019-03-21] MEDS ORDERED: NACL 0.9% 0 ML ONE (19:04)
--- NOTE | 2019-03-21 19:39 | Cat Scan Report ---
CT abdomen pelvis w con INDICATION / CLINICAL INFORMATION: Left flank pain since last night; status post procedure with ureteral stent placement 2 weeks ago. . TECHNIQUE: All CT scans at this location are performed using CT dose reduction for ALARA by means of automated e xposure control. COMPARISON: None. FINDINGS: ABDOMEN: There is a double-J left ureteral stent in good position radiographically. There are multipl e small stone fragments in the lower pole left pelvicalyceal system. There is marked left pelvocaliec tasis and ureterectasis despite the stent. The right kidney is normal. The gallbladder is surgically absent. There is moderate diffuse fatty infiltration of the liver. The bile ducts, pancreas, spleen, adrenal glands and bowel are normal. No adenopathy is seen. The lung ba ses are clear. PELVIS: There is a 6.3 cm ovoid cystic lesion in the left ovary with a slightly thickened wall. There is mild free fluid in the left adnexa. The uterus and right adnexa are unremarkable. There is no efrain dence of appendicitis or diverticulitis. The left ureter does not appear dilated past the level of th e adnexal cyst. The distal right ureter and urinary bladder are normal. IMPRESSION: 1. Marked left pelvocaliectasis and ureterectasis despite a left ureteral stent. Nonobstructive left nephrolithiasis. 2. 6.3 cm cystic mass in the left ovary is likely ovarian. There is mild associated free fluid in the left adnexa. The left ureter appears to change caliber at the level of the cyst. 3. Moderate diffuse fatty infiltration of the liver. Signer Name: Mao Sawant MD Signed: 03/21/2019 7:35 PM Workstation Name: [id number]
[2019-03-21] MEDS ORDERED: NACL 0.9% 1000 ML IV ONE (19:48)
[2019-03-21] MEDS ORDERED: ZOSYN/NS 4.5GM/100ML 4.5 GM/100 ML VIAL IV ONE (19:49)
--- NOTE | 2019-03-21 22:01 | Ultrasound Report ---
CLINICAL DATA: pelvic pain TECHNICAL DATA: Ultrasound, pelvic (nonobstetric), real-time with image documentation; transabdominal and transvagina l imaging with Doppler was performed. Doppler imaging demonstrates normal arterial and venous flow. FINDINGS: The uterus has been removed.. The right ovary is normal in size shape position. Complex mass present measuring 4.5 cm left ovary wi th Doppler signal. No evidence of free fluid IMPRESSION: Complex mass left adnexa recommend clinical correlation WOMEN OF REPRODUCTIVE AGE: 1. Cysts 3 cm: Normal physiologic findings; at the discretion of the interpreting physician whether o r not to describe them in the imaging report; do not need follow-up. 2. Cysts >3 and 5 cm: Should be described in the imaging report with a statement that they are almost certainly benign; do not need follow-up. 3. Cysts >5 and 7 cm: Should be described in the imaging report with a statement that they are almost certainly benign; yearly follow-up with US recommended. 4. Cysts >7 cm: Since these may be difficult to assess completely with US, further imaging with magne tic resonance (MR) or surgical evaluation should be considered. POSTMENOPAUSAL WOMEN: 1. Cysts 1 cm: Are clinically inconsequential; at the discretion of the interpreting physician whethe r or not to describe them in the imaging report; do not need follow-up. 2. Cysts >1 and 7 cm: Should be described in the imaging report with statement that they are almost c ertainly benign; yearly follow-up, at least initially, with US recommended. Some practices may opt to increase the lower size threshold for follow-up from 1 cm to as high as 3 cm. One may opt to continu e follow-up annually or to decrease the frequency of follow-up once stability or decrease in size has been confirmed. Cysts in the larger end of this range should still generally be followed on a regula r basis. 3. Cysts >7 cm: Since these may be difficult to assess completely with US, further imaging with MR or surgical evaluation should be considered.. Signer Name: Joshua Sinclair MD Signed: 03/21/2019 9:57 PM Workstation Name: [id number]
[2019-03-22] MEDS ORDERED: ZOFRAN IV PRN (00:24)
[2019-03-22] MEDS ORDERED: TYLENOL PO PRN (00:24)
[2019-03-22] MEDS ORDERED: PROAIR IH PRN (00:28)
[2019-03-22] MEDS ORDERED: PROVENTIL IH PRN (00:36)
[2019-03-22] MEDS: MORPHINE IV PRN ×5 (00:50→18:01)
[2019-03-22] MEDS ORDERED: MORPHINE ONE (00:51)
[2019-03-22] MEDS: HEPARIN SUB-Q SCH ×3 (02:07→21:39)
--- NOTE | 2019-03-22 05:32 | History and Physical Report ---
CHIEF COMPLAINT: Left lower quadrant abdominal pain. HISTORY OF PRESENT ILLNESS: The patient is a 33-year-old female presenting with left lower quadrant abdominal pain going on for about 26-48 hours. The patient states that she had surgery done on 03/14/2019 here in this hospital, when she had cystoscopy and left ureteroscopy done as well as left renal stone laser fragmentation and left ureteral stent placement all done during this hospital stay and then the patient says she has been having chronic back pain and was told that her back pain is more likely not due to her kidney stone and the patient had shockwave lithotripsy done because of kidney stone which did not succeed in breaking of the stone and after that the patient to have aggressive treatment and had ureteroscopy done to break off the stone. The patient admitted to having nausea and vomiting and chills, but denied history of fever and denied history of diarrhea, shortness of breath or chest pain. PAST MEDICAL HISTORY: Pertinent for hypertension, gastroesophageal reflux disease, migraine headaches, kidney stones, asthma. PAST SURGICAL HISTORY: Pertinent for cholecystectomy, appendectomy, 3 C-sections, tubal ligation, hernia surgery as well as shockwave lithotripsy. FAMILY HISTORY: Noncontributory. SOCIAL HISTORY: The patient is a former cigarette smoker, drinks alcohol and does not use illicit drugs. MEDICATIONS: The patient is on Ventolin 1 puff by inhalation as needed, [place] 5/325 one by mouth every 6 hours as needed for pain, loratadine 10 mg by mouth daily, ranitidine 150 mg by mouth twice daily, tramadol 50 mg by mouth every 4 hours as needed for pain and Ceftin 500 mg by mouth every 12 hours. ALLERGIES: THE PATIENT IS ALLERGIC TO ASPIRIN AND SILK TAPE. REVIEW OF SYSTEMS: CONSTITUTIONAL: There is no fever, but there are chills and no diaphoresis. HEENT: There is no headache or sore throat. CARDIOVASCULAR SYSTEM: There is no chest pain or orthopnea. RESPIRATORY SYSTEM: There is no shortness of breath or cough. GASTROINTESTINAL SYSTEM: There is left lower quadrant abdominal pain, nausea and vomiting with no diarrhea and no constipation. NEUROLOGICAL SYSTEM: There is no numbness, no dizziness, no altered mental status. MUSCULOSKELETAL SYSTEM: There is no joint pain or swelling. DERMATOLOGICAL SYSTEM: There is no skin rash or itching. GENITOURINARY SYSTEM: There is no dysuria, hematuria, or flank pain. Rest of system review is normal. PHYSICAL EXAMINATION: GENERAL: At the time of exam, the patient was found to be alert, oriented x 3, in mild distress due to left lower quadrant abdominal pain. VITAL SIGNS: At the initial time of presentation show temperature of 98.1 degrees Fahrenheit, pulse of 108, respirations 18, blood pressure 159/109, O2 sat of 99% on room air. HEENT: Showed pupils to be equal, round, reactive to light and accommodating. Extraocular muscles are intact. NECK: Supple with no JVD or carotid bruit. CARDIOVASCULAR SYSTEM: Showed normal first and second heart sounds with no gallops or murmurs. RESPIRATORY SYSTEM: Show good air entry on both sides of the lungs with no abnormal breath sounds. GASTROINTESTINAL SYSTEM: Showed abdomen to be full, soft with tenderness in the left lower quadrant area with no rebound tenderness, no organomegaly and no rigidity. NEUROLOGIC: Shows no focal deficit. MUSCULOSKELETAL SYSTEM: Show no joint swelling or tenderness. DERMATOLOGICAL SYSTEM: Show no skin rash. GENITOURINARY SYSTEM: Showing no costovertebral angle tenderness. PERTINENT LABORATORY DATA AND IMAGING STUDIES: The patient has CBC done that shows elevated white count, normal hemoglobin and normal hematocrit with CBC differential showing elevated segmented neutrophil count of 84.8 and the patient's chemistry was unremarkable. test unremarkable. Imaging studies, the patient has CT of the abdomen and pelvis done with contrast that shows marked left pelvocaliectasis and ureterectasis despite left ureteral stent. There is finding of nonobstructive left nephrolithiasis and a 6.3 cm cyst mass in the left ovary. There is mild associated free fluid in the left ureter, appears to change caliber at the level of the cyst. Moderate diffuse fatty infiltrate on the liver was also noted. Also, the patient had transvaginal ultrasound done and this shows ovarian cyst. DIAGNOSES: 1. Left lower quadrant abdominal pain. 2. Left ovarian cyst. PLAN OF CARE: 1. The patient will be admitted to medical/surgical [facility]. 2. The patient will have Urology consult with Dr. Bhavin Woo as requested by the Emergency Room physician for evaluation of left lower quadrant and left flank pain 2 weeks after stent placement. 3. The patient will have gynecological consult with Dr. Alysha Metzger for left ovarian cyst with left lower quadrant pain. 4. The patient will be on p.r.n. medications like Tylenol 650 mg by mouth every 4 hours for fever and headache and will be on IV morphine 2 mg every 3 hours as needed for pain as well as IV Zofran 4 mg every 8 hours for nausea and vomiting. 5. The patient will be on IV Zosyn 3.375 grams q.8 hours for empiric treatment of left lower quadrant pain secondary to stent placement. 6. The patient's diet will be 2 g sodium diet. 7. The patient's home medications will be started as shown in the medication reconciliation section. 8. The patient will be on IV normal saline at 100 mL an hour. JOB# [id number] OCN/JAZMIN MCKAYD
[2019-03-22] MEDS: NACL 0.9% 1000 ML 1,000 ML IV SCH ×2 (05:47→18:02)
[2019-03-22 05:56] LABS: Bacteria,Urine 2+ /HPF (Negative); Bilirubin,Urine NEG (Negative); Blood,Urine MOD (Negative); Color,Urine Yellow (Yellow); Protein,Urine <15 mg/dL mg/dL (Negative); Urobilinogen,Urine < 2.0 mg/dL (<2.0)
[2019-03-22] MEDS: ZOSYN/NS 4.5GM/100ML 4.5 GM/100 ML VIAL IV SCH ×3 (05:58→21:40)
[2019-03-22] MEDS ORDERED: ZOSYN/NS 3.375GM/50ML 3.375 GM/50 ML BAG IV SCH (06:00)
[2019-03-22] MEDS: CLARITIN PO SCH (09:38)
[2019-03-22] MEDS: PEPCID PO SCH ×2 (09:38→21:39)
[2019-03-22] MEDS ORDERED: CEFTIN PO SCH (10:00)
[2019-03-22] MEDS ORDERED: NON-FORMULARY (Ranitidine Hcl [Zantac] 150 MG) PO SCH (10:00)
--- NOTE | 2019-03-22 16:20 | Consultation ---
History of Present Illness Consult date: 03/22/19 Reason for consult: other (left ovarian cyst, flank pain PO 1 week s/p urology surgery for renal calculi) History of present illness: 33yo s/p hysterectomy for benign causes presented to ED complaining of left groin pain radiating to left flank. She is s/p evaluation and surgery by urology 02/2019 for renal calculi. Her ultrasound reveals a 4.5cm left complex cyst which upon further review are two adjoining simple cysts, likely physio logic in nature. Her right ovary is 2.2cm and uterus is surgically absent. She is s/p [facility] 12/2018 for pelvic pain by [facility]. Past History Past Medical History: hypertension, kidney stones Past Surgical History: appendectomy, cholecystectomy, section, hysterectomy Social history: Medications and Allergies Allergies Allergy/AdvReac Type Severity Reaction Status Date / Time aspirin Allergy Itching Verified 11/22/18 14:42 silk tape Allergy Itching Uncoded 03/01/19 16:27 Home Medications Medication Instructions Recorded Confirmed Last Taken Type ALBUTEROL Inhaler(NF) [VENTOLIN 1 puff IH PRN PRN 11/22/18 03/22/19 Unknown History Inhaler(NF)] HYDROcodone/APAP 5-325 [[place] 1 each PO Q6HR PRN 02/23/19 03/22/19 02/22/19 09:00 History 5/325] Loratadine [Claritin] 10 mg PO DAILY 02/23/19 03/22/19 02/28/19 09:00 History Ranitidine HCl [Zantac] 150 mg PO BID 02/23/19 03/22/19 02/24/19 09:00 History traMADol [Ultram] 50 mg PO Q4HR PRN 02/23/19 03/22/19 02/22/19 09:00 History HYDROcodone/APAP 10-325 [[place] 0.5 - 1 each PO Q6HR PRN #30 tablet 03/01/19 03/22/19 Unknown Rx 10-325 mg TAB] cefUROXime [Ceftin] 500 mg PO Q12H #20 tablet 03/01/19 03/22/19 Unknown Rx Active Meds: Active Medications Acetaminophen (Tylenol) 650 mg PO Q4H PRN PRN Reason: Fever >101 Albuterol (Proventil) 2.5 mg IH Q4HRT PRN PRN Reason: Shortness Of Breath Famotidine (Pepcid) 20 mg PO BID [facility] Last Admin: 03/22/19 09:38 Dose: 20 mg Documented by: Heparin Sodium (Porcine) (Heparin) 5,000 unit SUB-Q Q12HR MAGALY Last Admin: 03/22/19 09:45 Dose: 5,000 unit Documented by: Sodium Chloride (Nacl 0.9% 1000 Ml) 1,000 mls @ 100 mls/hr IV DIRECT MAGALY Last Admin: 03/22/19 05:47 Dose: 100 mls/hr Documented by: Piperacillin Sod/Tazobactam Sod (Zosyn/Ns 4.5gm/100ml) 4.5 gm in 100 mls @ 200 mls/hr IV Q8HR [facility]; Protocol Last Admin: 03/22/19 13:32 Dose: 200 mls/hr Documented by: Loratadine (Claritin) 10 mg PO DAILY [facility] Last Admin: 03/22/19 09:38 Dose: 10 mg Documented by: Morphine Sulfate (Morphine) 2 mg IV Q3H PRN PRN Reason: Pain, Moderate (4-6) Last Admin: 03/22/19 13:32 Dose: 2 mg Documented by: Ondansetron HCl (Zofran) 4 mg IV Q8H PRN PRN Reason: Nausea And Vomiting - Vital Signs Vital signs: Vital Signs Temp Pulse Resp BP Pulse Ox 98.1 F 108 H 18 159/109 99 03/21/19 14:55 03/21/19 14:55 03/21/19 14:55 03/21/19 14:55 03/21/19 14:55 Temp Pulse Resp BP Pulse Ox 98.3 F 76 22 107/58 96 03/22/19 13:57 03/22/19 13:57 03/22/19 13:57 03/22/19 13:57 03/22/19 13:57 - Physical Exam Abdomen: Positive: soft, other (well healing Pfannesteil incision) Results Result Diagrams: 03/21/19 17:17 03/21/19 17:17 Abnormal lab results 03/21/19 03/21/19 03/22/19 Range/Units 17:17 17:17 05:37 WBC 13.2 H (4.5-11.0) K/mm3 Lymph % (Auto) 9.7 L (13.4-35.0) % Seg Neutrophils % 84.8 H (40.0-70.0) % Seg Neutrophils # 11.2 H (1.8-7.7) K/mm3 Glucose 115 H (65-100) mg/dL Urine WBC (Auto) 7.0 H (0.0-6.0) /HPF All other labs normal. Assessment and Plan - Patient Problems (1) Ovarian cyst Current Visit: Yes Status: Acute Plan to address problem: Discussed with patient that ovarian cyst appears benign and due to size < 5cm, it is unlikely the cause of her current radiating flank pain. Likely physiologic cyst as simple and benign appearing in nature. Doppler flow identified for bilateral ovaries therefore torsion not suspected. Patient not ideal hormonal candidate for prevention of ovulation and subsequent formation of cysts due to hypertension. Recommend outpatient follow-up with repeat US in 6-8weeks. Thank you for allowing me to assist in care of this patient. Please feel free to contact me with any questions.
--- NOTE | 2019-03-22 17:18 | Progress Note ---
Assessment and Plan Assessment and plan: 33 year old female with history of asthma, migraines, obesity, kidney stone, hypertension, appendectomy, cholecystectomy, tubal ligation complaints of abdominal pain left lower quadrant for over 48 hrs. Had recent cystocscopy and left ureterscopy and laser fragmentation and left urethral stent placement. Left Lower Quadrant abdominal pain Nephrolithasis s/p Left Urethrea stent Left Ovarian cyst Morbid obesity Leukocytsis Acute cystitis Plan Continue supportive care Await TRANSFUSION NURSE and Urology eval Continue pain control Continue Abx Await Urine culture DVT/GI prophy History Interval history: Patient seen and examined, very emotional about the shooting pain she gets in her abdomen down her pelvis, concerned and upset that she is finding out she did not have a total hystrectomy. No other new complaints. Hospitalist Physical - Constitutional Vitals: Temp Pulse Resp BP Pulse Ox 98.3 F 76 22 107/58 96 03/22/19 13:57 03/22/19 13:57 03/22/19 13:57 03/22/19 13:57 03/22/19 13:57 General appearance: Present: no acute distress, well-nourished, obese (morbid) - EENT Eyes: Present: PERRL, EOM intact ENT: hearing intact, clear oral mucosa, dentition normal - Neck Neck: Present: supple, normal ROM - Respiratory Respiratory effort: normal Respiratory: bilateral: CTA - Cardiovascular Rhythm: regular Heart Sounds: Present: S1 & S2. Absent: systolic murmur - Extremities Extremities: no ischemia, pulses intact, pulses symmetrical, No edema, Full ROM Peripheral Pulses: within normal limits - Abdominal General gastrointestinal: soft, non-tender, non-distended, normal bowel sounds - Integumentary Integumentary: Present: clear, warm, dry - Psychiatric Psychiatric: appropriate mood/affect, intact judgment & insight - Neurologic Neurologic: CNII-XII intact, moves all extremities - Allied Health Allied health notes reviewed: nursing Results - Labs CBC & Chem 7: 03/21/19 17:17 03/21/19 17:17 Labs: Laboratory Last Values WBC 13.2 K/mm3 (4.5-11.0) H 03/21/19 17:17 RBC 4.68 M/mm3 (3.65-5.03) 03/21/19 17:17 Hgb 13.9 gm/dl (10.1-14.3) 03/21/19 17:17 Hct 41.4 % (30.3-42.9) 03/21/19 17:17 MCV 89 fl (79-97) 03/21/19 17:17 MCH 30 pg (28-32) 03/21/19 17:17 MCHC 34 % (30-34) 03/21/19 17:17 RDW 14.2 % (13.2-15.2) 03/21/19 17:17 Plt Count 403 K/mm3 (140-440) 03/21/19 17:17 Lymph % (Auto) 9.7 % (13.4-35.0) L 03/21/19 17:17 [place] % (Auto) 4.6 % (0.0-7.3) 03/21/19 17:17 Eos % (Auto) 0.2 % (0.0-4.3) 03/21/19 17:17 Baso % (Auto) 0.7 % (0.0-1.8) 03/21/19 17:17 Lymph # 1.3 K/mm3 (1.2-5.4) 03/21/19 17:17 [place] # 0.6 K/mm3 (0.0-0.8) 03/21/19 17:17 Eos # 0.0 K/mm3 (0.0-0.4) 03/21/19 17:17 Baso # 0.1 K/mm3 (0.0-0.1) 03/21/19 17:17 Seg Neutrophils % 84.8 % (40.0-70.0) H 03/21/19 17:17 Seg Neutrophils # 11.2 K/mm3 (1.8-7.7) H 03/21/19 17:17 PT 12.5 Sec. (12.2-14.9) 03/21/19 17:17 INR 0.96 (0.87-1.13) 03/21/19 17:17 Sodium 137 mmol/L (137-145) 03/21/19 17:17 Potassium 4.7 mmol/L (3.6-5.0) 03/21/19 17:17 Chloride 102.7 mmol/L (98-107) 03/21/19 17:17 Carbon Dioxide 24 mmol/L (22-30) 03/21/19 17:17 15 mmol/L 03/21/19 17:17 BUN 9 mg/dL (7-17) 03/21/19 17:17 0.7 mg/dL (0.7-1.2) 03/21/19 17:17 Estimated GFR > 60 ml/min 03/21/19 17:17 13 % 03/21/19 17:17 Glucose 115 mg/dL (65-100) H 03/21/19 17:17 Lactic Acid 1.30 mmol/L (0.7-2.0) 03/21/19 23:08 Calcium 9.1 mg/dL (8.4-10.2) 03/21/19 17:17 0.60 mg/dL (0.1-1.2) 03/21/19 17:17 < 0.2 mg/dL (0-0.2) 03/21/19 17:17 0.4 mg/dL 03/21/19 17:17 AST 11 units/L (5-40) 03/21/19 17:17 ALT 14 units/L (7-56) 03/21/19 17:17 63 units/L (35-129) 03/21/19 17:17 7.1 g/dL (6.3-8.2) 03/21/19 17:17 4.0 g/dL (3.9-5) 03/21/19 17:17 1.3 % 03/21/19 17:17 15 units/L (13-60) 03/21/19 17:17 HCG, Quant < 2 mIU/mL (0-4) 03/21/19 17:17 Yellow (Yellow) 03/22/19 05:37 Clear (Clear) 03/22/19 05:37 6.0 (5.0-7.0) 03/22/19 05:37 Ur Specific [place] 1.014 (1.003-1.030) 03/22/19 05:37 <15 mg/dl mg/dL (Negative) 03/22/19 05:37 Neg mg/dL (Negative) 03/22/19 05:37 Neg mg/dL (Negative) 03/22/19 05:37 Mod (Negative) 03/22/19 05:37 Neg (Negative) 03/22/19 05:37 Neg (Negative) 03/22/19 05:37 < 2.0 mg/dL (<2.0) 03/22/19 05:37 Ur Leukocyte Esterase Sm (Negative) 03/22/19 05:37 7.0 /HPF (0.0-6.0) H 03/22/19 05:37 17.0 /HPF (0.0-6.0) 03/22/19 05:37 U Epithel Cells (Auto) 3.0 /HPF (0-13.0) 03/22/19 05:37 2+ /HPF (Negative) 03/22/19 05:37 Active Medications - Current Medications Current Medications: Generic Name Dose Route Start Last Admin Trade Name Freq PRN Reason Stop Dose Admin Acetaminophen 650 mg 03/22/19 00:24 Tylenol PO Q4H PRN Fever >101 Albuterol 2.5 mg 03/22/19 00:36 Proventil IH Q4HRT PRN Shortness Of Breath Famotidine 20 mg 03/22/19 10:00 03/22/19 09:38 Pepcid PO 20 mg BID MAGALY Administration Heparin Sodium (Porcine) 5,000 unit 03/22/19 00:30 03/22/19 09:45 Heparin SUB-Q 5,000 unit Q12HR MAGALY Administration Sodium Chloride 1,000 mls @ 100 mls/hr 03/22/19 01:00 03/22/19 05:47 Nacl 0.9% 1000 Ml IV 100 mls/hr DIRECT MAGALY Administration Piperacillin Sod/Tazobactam Sod 4.5 gm in 100 mls @ 200 mls/hr 03/22/19 06:00 03/22/19 13:32 Zosyn/Ns 4.5gm/100ml IV 200 mls/hr Q8HR MAGALY Administration Protocol Loratadine 10 mg 03/22/19 10:00 03/22/19 09:38 Claritin PO 10 mg DAILY MAGALY Administration Morphine Sulfate 2 mg 03/22/19 00:24 03/22/19 13:32 Morphine IV 2 mg Q3H PRN Administration Pain, Moderate (4-6) Ondansetron HCl 4 mg 03/22/19 00:24 Zofran IV Q8H PRN Nausea And Vomiting
--- NOTE | 2019-03-22 17:31 | Progress Note ---
Assessment and Plan consult dictated has L j stent Subjective Date of service: 03/22/19 Principal diagnosis: l stent stones Objective - Constitutional Vitals: Vital Signs - 12hr 03/22/19 03/22/19 11:42 13:57 Temperature 98.3 F Pulse Rate 76 Respiratory 22 Rate Blood Pressure 107/58 O2 Sat by Pulse 98 96 Oximetry - Labs CBC & Chem 7: 03/21/19 17:17 03/21/19 17:17 Labs: Abnormal lab results 03/21/19 03/21/19 03/22/19 Range/Units 17:17 17:17 05:37 WBC 13.2 H (4.5-11.0) K/mm3 Lymph % (Auto) 9.7 L (13.4-35.0) % Seg Neutrophils % 84.8 H (40.0-70.0) % Seg Neutrophils # 11.2 H (1.8-7.7) K/mm3 Glucose 115 H (65-100) mg/dL Urine WBC (Auto) 7.0 H (0.0-6.0) /HPF Medications & Allergies - Medications Allergies/Adverse Reactions: Allergies aspirin Allergy (Verified 11/22/18 14:42) Itching silk tape Allergy (Uncoded 03/01/19 16:27) Itching Home Medications: Home Medications Medication Instructions Recorded Confirmed Last Taken Type ALBUTEROL Inhaler(NF) [VENTOLIN 1 puff IH PRN PRN 11/22/18 02/23/19 Unknown History Inhaler(NF)] HYDROcodone/APAP 5-325 [[place] 1 each PO Q6HR PRN 02/23/19 03/01/19 02/22/19 09:00 History 5/325] Loratadine [Claritin] 10 mg PO DAILY 02/23/19 03/01/19 02/28/19 09:00 History Ranitidine HCl [Zantac] 150 mg PO BID 02/23/19 03/01/19 02/24/19 09:00 History traMADol [Ultram] 50 mg PO Q4HR PRN 02/23/19 03/01/19 02/22/19 09:00 History HYDROcodone/APAP 10-325 [[place] 0.5 - 1 each PO Q6HR PRN #30 tablet 03/01/19 Unknown Rx 10-325 mg TAB] cefUROXime [Ceftin] 500 mg PO Q12H #20 tablet 03/01/19 Unknown Rx Active Medications: Generic Name Dose Route Start Last Admin Trade Name Freq PRN Reason Stop Dose Admin Acetaminophen 650 mg 03/22/19 00:24 Tylenol PO Q4H PRN Fever >101 Albuterol 2.5 mg 03/22/19 00:36 Proventil IH Q4HRT PRN Shortness Of Breath Famotidine 20 mg 03/22/19 10:00 03/22/19 09:38 Pepcid PO 20 mg BID MAGALY Administration Heparin Sodium (Porcine) 5,000 unit 03/22/19 00:30 03/22/19 09:45 Heparin SUB-Q 5,000 unit Q12HR MAGALY Administration Sodium Chloride 1,000 mls @ 100 mls/hr 03/22/19 01:00 03/22/19 05:47 Nacl 0.9% 1000 Ml IV 100 mls/hr DIRECT MAGALY Administration Piperacillin Sod/Tazobactam Sod 4.5 gm in 100 mls @ 200 mls/hr 03/22/19 06:00 03/22/19 13:32 Zosyn/Ns 4.5gm/100ml IV 200 mls/hr Q8HR MAGALY Administration Protocol Loratadine 10 mg 03/22/19 10:00 03/22/19 09:38 Claritin PO 10 mg DAILY MAGALY Administration Morphine Sulfate 2 mg 03/22/19 00:24 03/22/19 13:32 Morphine IV 2 mg Q3H PRN Administration Pain, Moderate (4-6) Ondansetron HCl 4 mg 03/22/19 00:24 Zofran IV Q8H PRN Nausea And Vomiting
--- NOTE | 2019-03-23 01:22 | Consultation ---
HISTORY OF PRESENT ILLNESS: The patient is a 33-year-old woman with a history of kidney stones. She was admitted with a slightly elevated white count. Dr. Stokes placed left stent. She has moderate hydronephrosis with the stent in position. She also was found to have an ovarian mass. She was admitted with pain. Her pain is mostly resolved. She also has stones in her kidney which were nonobstructing. She has a cyst in the left ovary. PAST MEDICAL HISTORY: Hypertension, migraines, stone, asthma. PAST SURGICAL HISTORY: Cholecystectomy, appendectomy, C-sections, tubal ligation. FAMILY HISTORY: Noncontributory. SOCIAL HISTORY: History of smoking. MEDICATIONS: Ventolin. She was on Ceftin. ALLERGIES: ASPIRIN. REVIEW OF SYSTEMS: She is improved. No nausea, vomiting. PHYSICAL EXAMINATION: GENERAL: She is awake. She is severely obese. She is in no distress. ABDOMEN: Soft, nondistended. Minimal left-sided pain. 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 She has a left stent that may need to be changed. We offered percutaneous nephrostomy if the stent is too painful. She does not want that at this time. The plan will be follow up as an outpatient. She can be discharged when there is no evidence of any infection and her pain is tolerable, which it is now. JOB# [id number] RHIANNON/JAZMIN
[2019-03-23] MEDS: ZOSYN/NS 4.5GM/100ML 4.5 GM/100 ML VIAL IV SCH ×2 (05:36→13:47)
[2019-03-23] MEDS: NACL 0.9% 1000 ML 1,000 ML IV SCH (09:45)
[2019-03-23] MEDS: HEPARIN SUB-Q SCH (09:46)
[2019-03-23] MEDS: CLARITIN PO SCH (09:46)
[2019-03-23] MEDS: PEPCID PO SCH (09:46)
[2019-03-23] MEDS: MORPHINE IV PRN (09:47)
--- NOTE | 2019-03-23 11:48 | Discharge Summary ---
Providers - Providers Date of Admission: 03/22/19 00:23 Attending physician: MELVIN FOSTER MD 03/21/19 16:10 Consult to Physician [CONS] Urgent Comment: Consulting Provider: MALCOLM TEMPLETON Physician Instructions: Reason For Exam: left sided flank pain 03/22/19 06:00 Consult to Physician [CONS] Routine Comment: Consulting Provider: HUGO BORGES Physician Instructions: Reason For Exam: LEFT FLANK PAIN WITH LEFT OVARIAN CYST Primary care physician: ITALIAN TUTOR Hospitalization Reason for admission: ABDOMINAL PAIN Condition: Good Hospital course: 33 year old female with history of asthma, migraines, obesity, kidney stone, hypertension, appendectomy, cholecystectomy, tubal ligation complaints of abdominal pain left lower quadrant for over 48 hrs. Had recent cystocscopy and left ureterscopy and laser fragmentation and left urethral stent placement. Patient was seen by urology and offered percutanous drain but refused, she was also seen by DIGITAL PHOTO PRINTER nad will follow outpatient. she feels better and reported that the clearity given by the consultants was helpful. she will continue to work on losing weight. SIRS without organ dysfunction Abdominal pain left lower quadrant Peritoneal irritation from nephrolithasis Nephrolithasis s/p Left Urethrea stent Left Ovarian cyst Morbid obesity BMI 50 Leukocytsis Acute cystitis-complete home dose abx Disposition: TO HOME OR SELFCARE Time spent for discharge: 35 mins Core Measure Documentation - Palliative Care Palliative Care/ Comfort Measures: Not Applicable - Core Measures Any of the following diagnoses?: none Exam - Physical Exam Narrative exam: General appearance: Present: no acute distress, well-nourished, obese (morbid) - EENT Eyes: Present: PERRL, EOM intact ENT: hearing intact, clear oral mucosa, dentition normal - Neck Neck: Present: supple, normal ROM - Respiratory Respiratory effort: normal Respiratory: bilateral: CTA - Cardiovascular Rhythm: regular Heart Sounds: Present: S1 & S2. Absent: systolic murmur - Extremities Extremities: no ischemia, pulses intact, pulses symmetrical, No edema, Full ROM Peripheral Pulses: within normal limits - Abdominal General gastrointestinal: soft, non-tender, non-distended, normal bowel sounds - Integumentary Integumentary: Present: clear, warm, dry - Psychiatric Psychiatric: appropriate mood/affect, intact judgment & insight - Neurologic Neurologic: CNII-XII intact, moves all extremities - Allied Health Allied health notes reviewed: nursing - Constitutional Vitals: Temp Pulse Resp BP Pulse Ox 97.8 F 57 L 18 113/71 94 03/23/19 05:16 03/23/19 05:16 03/23/19 05:16 03/23/19 05:16 03/23/19 05:16 Plan Activity: advance as tolerated, fall precautions Diet: low cholesterol Special Instructions: record daily BP diary Follow up with: PRIMARY MD FARZANA [Primary Care Provider] - 3-5 Days JERILYN SHARPE MD [Staff Physician] - 7 Days HUGO BORGES MD [Staff Physician] - 7 Days
[2019-03-23 17:10] VITALS: BP 110/70
== END 2019-03-23 18:10 | disposition home or self-care (01) | DRG 760 ==
LOC: ED 14:51 → 3A 03-22 00:23
PROVIDERS: ADMIT Internal Medicine; ATTEND Internal Medicine
DX: N83.202 Unspecified ovarian cyst, left side (principal); Z68.43 Body mass index [BMI] 50.0-59.9, adult; N30.00 Acute cystitis without hematuria; J45.909 Unspecified asthma, uncomplicated; G43.909 Migraine, unspecified, not intractable, without status migrainosus; I10 Essential (primary) hypertension; E66.01 Morbid (severe) obesity due to excess calories; D72.829 Elevated white blood cell count, unspecified; K21.9 Gastro-esophageal reflux disease without esophagitis; Z88.6 Allergy status to analgesic agent; Z87.442 Personal history of urinary calculi; Z90.49 Acquired absence of other specified parts of digestive tract; Z98.51 Tubal ligation status; Z90.710 Acquired absence of both cervix and uterus
CPT/HCPCS: 36415; 74177; 76830; 80048; 80076; 81001; 82140; 83690; 84702; 85025; 85610; 87040; 87086; 93975; 96365; 96372; 96375; 96376; G0378; J1170; J1644; J2001; J2270; J2405; J2543; J7030; J7040; Q9967

== ENCOUNTER 2019-04-28 20:12 | Emergency (ER) | payer OTHER ==
[2019-04-28 20:18] VITALS: BP 131/82
--- NOTE | 2019-04-28 21:01 | Event Note ---
ED Screening Note Date of service: 04/28/19 Time: 20:58 ED Screening Note: 33 y o female presenst with left sided pelvic pain and nausea pmh of left sided ovarian cyst denies vag bleed, motrin no relief pmh: partial hysterectomy This initial assessment/diagnostic orders/clinical plan/treatment(s) is/are subject to change based on patients health status, clinical progression and re- assessment by fellow clinical providers in the ED. Further treatment and workup at subsequent clinical providers discretion. Patient/guardian urged not to elope from the ED as their condition may be serious if not clinically assessed and managed. Initial orders include: ua,
[2019-04-28] MEDS ORDERED: ZOFRAN ODT PO ONE (22:56)
[2019-04-28] MEDS ORDERED: NORCO 10/325 PO ONE (22:56)
[2019-04-28 23:08] LABS: Bilirubin,Urine NEG (Negative); Blood,Urine NEG (Negative); Color,Urine Yellow (Yellow); Mucus,Urine FEW /HPF; Protein,Urine <15 mg/dL mg/dL (Negative); Urobilinogen,Urine < 2.0 mg/dL (<2.0)
[2019-04-28 23:32] LABS: Alanine Aminotransferase 22 units/L (7-56); BUN/Creatinine Ratio 22; Blood Urea Nitrogen 13 mg/dL (7-17); Calcium 9.1 mg/dL (8.4-10.2); Hemolysis Index 63
[2019-04-28 23:59] LABS: Basophils # (Auto) 0.1 K/mm3 (0.0-0.1); Basophils % (Auto) 0.8 % (0.0-1.8); Eosinophils # (Auto) 0.2 K/mm3 (0.0-0.4); Eosinophils % (Auto) 1.9 % (0.0-4.3); Hematocrit 41.5 % (30.3-42.9); Hemoglobin 14.2 gm/dl (10.1-14.3); Lymphocytes # (Auto) 3.1 K/mm3 (1.2-5.4); Lymphocytes % (Auto) 32.2 % (13.4-35.0); Mean Corpuscular HGB Conc 34 % (30-34); Mean Corpuscular Volume 90 fl (79-97); Monocytes # (Auto) 0.8 K/mm3 (0.0-0.8); Monocytes % (Auto) 8.7 % (0.0-7.3); Platelet Count 358 K/mm3 (140-440); Red Blood Count 4.61 M/mm3 (3.65-5.03); Red Cell Distribution Width 14.1 % (13.2-15.2)
--- NOTE | 2019-04-29 | Emergency Department Report ---
ED Female HPI - General Chief complaint: Abdominal Pain Stated complaint: ABDOMINAL PAIN Time Seen by Provider: 04/28/19 20:57 Source: patient Mode of arrival: Ambulatory Limitations: No Limitations - History of Present Illness Initial comments: This is a 33-year-old female nontoxic, well nourished in appearance, no acute signs of distress presents to the ED with c/o of nausea and vomiting and left sided pelvic pain x3 days. Patient stated this is acute on chronic intermittent pelvic pains due to ovarian cysts. Patient describes vomiting as food content and yellow gastric acid. Patient describes pelvic pain as cramping and aching with level of 3/10 mostly to left side. Patient denies chest pain, short of breath, fever, chills, headache, stiff neck, numbness or tingling. Patient denies any diarrhea or constipation. Patient denies any recent travels. Patient stated allergies to aspirin. MD Complaint: pelvic pain -: days(s) (3) Radiation: non-radiating Severity: mild Severity scale (0 -10): 3 Quality: cramping, aching Consistency: constant Improves with: none Worsens with: none Associated Symptoms: nausea/vomiting, other (left pelvic pain). denies: vaginal discharge, vaginal bleeding, abdominal pain, fever/chills, headaches, loss of appetite, dysuria, hematuria, rash, seizure, shortness of breath, syncope, weakness - Related Data Home Medications Medication Instructions Recorded Confirmed Last Taken ALBUTEROL Inhaler(NF) [VENTOLIN 1 puff IH PRN PRN 11/22/18 03/22/19 Unknown Inhaler(NF)] HYDROcodone/APAP 5-325 [[place] 1 each PO Q6HR PRN 02/23/19 03/22/19 02/22/19 09:00 5-325 mg TAB] Loratadine [Claritin] 10 mg PO DAILY 02/23/19 03/22/19 02/28/19 09:00 raNITIdine HCl [Zantac] 150 mg PO BID 02/23/19 03/22/19 02/24/19 09:00 traMADol [Ultram 50 MG tab] 50 mg PO Q4HR PRN 02/23/19 03/22/19 02/22/19 09:00 Previous Rx's Medication Instructions Recorded Last Taken Type HYDROcodone/APAP 10-325 [[place] 0.5 - 1 each PO Q6HR PRN #30 tablet 03/01/19 Unknown Rx 10-325 mg TAB] cefUROXime [Ceftin] 500 mg PO Q12H #20 tablet 03/01/19 Unknown Rx Acetaminophen/Codeine [Tylenol 1 tab PO Q6H PRN #12 tab 04/29/19 Unknown Rx /Codeine # 3 tab] Ondansetron [Zofran Odt] 4 mg PO Q8HR PRN #20 tab.rapdis 04/29/19 Unknown Rx Allergies Allergy/AdvReac Type Severity Reaction Status Date / Time aspirin Allergy Itching Verified 11/22/18 14:42 silk tape Allergy Itching Uncoded 03/01/19 16:27 ED Review of Systems ROS: Stated complaint: ABDOMINAL PAIN Other details as noted in HPI Constitutional: denies: chills, fever Eyes: denies: eye pain, eye discharge, vision change ENT: denies: ear pain, throat pain Respiratory: denies: cough, shortness of breath, wheezing Cardiovascular: denies: chest pain, palpitations Endocrine: no symptoms reported Gastrointestinal: nausea, vomiting. denies: abdominal pain, diarrhea Genitourinary: denies: urgency, dysuria, discharge Musculoskeletal: denies: back pain, joint swelling, arthralgia Skin: denies: rash, lesions Neurological: denies: headache, weakness, paresthesias Psychiatric: denies: anxiety, depression Hematological/Lymphatic: denies: easy bleeding, easy bruising ED Past Medical Hx - Past Medical History Previous Medical History?: Yes Hx Hypertension: Yes Hx Heart Attack/AMI: No Hx Congestive Heart Failure: No Hx Diabetes: No Hx GERD: Yes Hx Liver Disease: No Hx Renal Disease: No Hx Headaches / Migraines: Yes (MIGRAINES) Hx Seizures: No Hx Kidney Stones: Yes Hx Asthma: Yes (last inhaler use in December 2018) Hx COPD: No Hx HIV: No Additional medical history: Ovarian cysts. Morbid Obesity - Surgical History Past Surgical History?: Yes Hx Cholecystectomy: Yes Hx Appendectomy: Yes Additional Surgical History: 3 c sections and tubal ligation, appendix removal, hernia surgery, HYSTERECTOMY - Social History Smoking Status: Never Smoker Substance Use Type: None - Medications Home Medications: Home Medications Medication Instructions Recorded Confirmed Last Taken Type ALBUTEROL Inhaler(NF) [VENTOLIN 1 puff IH PRN PRN 11/22/18 03/22/19 Unknown History Inhaler(NF)] HYDROcodone/APAP 5-325 [[place] 1 each PO Q6HR PRN 02/23/19 03/22/19 02/22/19 09:00 History 5-325 mg TAB] Loratadine [Claritin] 10 mg PO DAILY 02/23/19 03/22/19 02/28/19 09:00 History raNITIdine HCl [Zantac] 150 mg PO BID 02/23/19 03/22/19 02/24/19 09:00 History traMADol [Ultram 50 MG tab] 50 mg PO Q4HR PRN 02/23/19 03/22/19 02/22/19 09:00 History HYDROcodone/APAP 10-325 [[place] 0.5 - 1 each PO Q6HR PRN #30 tablet 03/01/19 03/22/19 Unknown Rx 10-325 mg TAB] cefUROXime [Ceftin] 500 mg PO Q12H #20 tablet 03/01/19 03/22/19 Unknown Rx Acetaminophen/Codeine [Tylenol 1 tab PO Q6H PRN #12 tab 04/29/19 Unknown Rx /Codeine # 3 tab] Ondansetron [Zofran Odt] 4 mg PO Q8HR PRN #20 tab.rapdis 04/29/19 Unknown Rx ED Physical Exam - General Limitations: No Limitations General appearance: alert, in no apparent distress - Head Head exam: Present: atraumatic, normocephalic - Neck Neck exam: Present: normal inspection, full ROM. Absent: tenderness, meningismus, lymphadenopathy - GI/Abdominal GI/Abdominal exam: Present: soft, tenderness (left pelvic area), normal bowel sounds. Absent: distended, guarding, rebound, rigid, diminished bowel sounds - Expanded GI/Abdominal Exam Expanded GI/Abdominal exam: Absent: psoas sign, Ochoa's sign, Rovsing's sign, tenderness at Mcburney's Point, ascites - Extremities Exam Extremities exam: Present: normal inspection, full ROM - Back Exam Back exam: Present: normal inspection, full ROM. Absent: tenderness, CVA tenderness (R), CVA tenderness (L), muscle spasm, paraspinal tenderness, ve rtebral tenderness, rash noted - Neurological Exam Neurological exam: Present: alert, oriented X3, normal gait - Psychiatric Psychiatric exam: Present: normal affect, normal mood - Skin Skin exam: Present: warm, dry, intact, normal color. Absent: rash ED Course Vital Signs 04/28/19 20:16 Temperature 97.5 F L Pulse Rate 90 Respiratory 20 Rate Blood Pressure 131/82 O2 Sat by Pulse 98 Oximetry - Reevaluation(s) Reevaluation #1: 04/28/19 23:59 Patient is speaking in full sentences with no signs of distress noted. ED Medical Decision Making - Lab Data Result diagrams: 04/28/19 23:02 04/28/19 23:02 - Medical Decision Making This is a 33-year-old male that presents with left ovarian cyst and n/v. Patient is stable and was examined by me. There is no abdominal tenderness. Ne gative signs of symptoms of appendicitis. Labs obtained. UA obtained. US doppler pelvic and transvaginal obtained and dictated by the radiologist. Patient is notified of the report with no questions noted by the patient. Vital signs are stable prior to discharge. Patient received medical treatment in the ED which patient stated symptoms has resovled and subsided. Was instructed note to operate any machinery due to possible drowsiness and stated someone will drive the patient home. A by mouth challenge has been obtained and patient tolerated well with no nausea vomiting. Patient was also instructed to Follow- up with a OBGYN doctor in 3-5 days or if symptoms worsen and continue return to emergency room as soon as possible. At time of discharge, the patient does not seem toxic or ill in appearance. No acute signs of distress noted. Patient agrees to discharge treatment plan of care. No further questions noted by the patient. Critical care attestation.: If time is entered above; I have spent that time in minutes in the direct care of this critically ill patient, excluding procedure time. ED Disposition Clinical Impression: Left ovarian cyst Nausea & vomiting Qualifiers: Vomiting type: unspecified Vomiting Intractability: non-intractable Qualified Code(s): R11.2 - Nausea with vomiting, unspecified Disposition: DC-01 TO HOME OR SELFCARE Is pt being admited?: No Does the pt Need Aspirin: No Condition: Stable Instructions: Ovarian Cyst (ED), Acetaminophen/Codeine (By mouth) Additional Instructions: Follow-up with a OBGYN doctor in 3-5 days or if symptoms worsen and continue return to emergency room as soon as possible. Do not operate any machinery while taking Tylenol with codeine as this may cause drowsiness. Prescriptions: Acetaminophen/Codeine [Tylenol /Codeine # 3 tab] 1 tab PO Q6H PRN #12 tab PRN Reason: Pain , Severe (7-10) Ondansetron [Zofran Odt] 4 mg PO Q8HR PRN #20 tab.rapdis PRN Reason: Nausea Referrals: PRIMARY CARE, [Referring] - 3-5 Days CAM OKEEFE MD [Staff Physician] - 3-5 Days [facility] [Provider Group] - 3-5 Days Forms: Work/School Release Form(ED)
--- NOTE | 2019-04-29 00:38 | Ultrasound Report ---
Pelvic ultrasound performed transabdominally and endovaginally. HISTORY: Pelvic pain. COMPARISON: 03/21/2019. FINDINGS: Status post previous hysterectomy. The right ovary cannot be identified. The left ovary jayleen sures 3.9 x 3.3 x 3.7 cm in contains a 1.8 cm physiologic cyst. Previously, a complex cystic lesion w as seen at the left adnexa measuring 4.5 cm. IMPRESSION: 1. Negative for suspicious adnexal lesion. 2. Right ovary not visualized. 3. Resolution of complex cystic mass at the left ovary. A 1.8 cm cyst is present on today's exam. Signer Name: Nathan Badillo MD Signed: 04/29/2019 12:34 AM Workstation Name: [id number]
[2019-04-29] MEDS ORDERED: TYLENOL #3 PO ONE (01:26)
[2019-04-29] MEDS ORDERED: TYLENOL #3 ONE (01:29)
== END 2019-04-29 01:27 | disposition home or self-care (01) ==
LOC: ED 20:12
DX: N83.202 Unspecified ovarian cyst, left side (principal); I10 Essential (primary) hypertension; K21.9 Gastro-esophageal reflux disease without esophagitis; G43.909 Migraine, unspecified, not intractable, without status migrainosus; J45.909 Unspecified asthma, uncomplicated; Z98.51 Tubal ligation status; Z90.49 Acquired absence of other specified parts of digestive tract; Z90.710 Acquired absence of both cervix and uterus; Z79.899 Other long term (current) drug therapy; Z88.6 Allergy status to analgesic agent; Z91.048 Other nonmedicinal substance allergy status
CPT/HCPCS: 36415; 76830; 80053; 81001; 83690; 84703; 85025; 93975; 99284; Q0162

== ENCOUNTER 2019-06-23 10:47 | Day surgery (SDC) | payer OTHER ==
[~2019-06-23 10:47] MED LIST: IOHEXOL 300 MG/ML 50ML IV ONE
[2019-06-23] MEDS ORDERED: LACTATED RINGERS 1,000 ML IV SCH (13:01)
[2019-06-23] MEDS ORDERED: ONDANSETRON 4 MG/2 ML INJ IV PRN (13:36)
--- NOTE | 2019-06-23 13:36 | Anesthesia Day of Surgery ---
Anesthesia Day of Surgery - Day of Surgery Patient Examined: Yes Patient H&P Reviewed: Yes Patient is NPO: Yes
--- NOTE | 2019-06-23 13:38 | Anesthesia Consultation ---
Anesthesia Consult and Med Hx Date of service: 06/23/19 - Airway Anesthetic Teeth Evaluation: Good ROM Head & Neck: Adequate Mental/Hyoid Distance: Adequate Mallampati Class: Class II Intubation Access Assessment: Probably Good - Pre-Operative Health Status ASA Pre-Surgery Classification: ASA3 Proposed Anesthetic Plan: General - Pulmonary Hx Asthma: Yes (last inhaler use in December 2018) Hx Respiratory Symptoms: No - Cardiovascular System Hx Hypertension: Yes (No meds) - Central Nervous System Hx Back Pain: Yes (FROM STONE) Hx Psychiatric Problems: Yes - Gastrointestinal Hx Gastroesophageal Reflux Disease: No - Endocrine Hx Insulin Dependent Diabetes: No Hx Non-Insulin Dependent Diabetes: No Hx Thyroid Disease: No - Other Systems Hx Cancer: No Hx Obesity: Yes
[2019-06-23] MEDS ORDERED: SCOPOLAMINE TRANSDERMAL PATCH 72 HR TD NR (14:00)
[2019-06-23] MEDS ORDERED: MIDAZOLAM 2 MG/2 ML INJ IV NR (14:00)
[2019-06-23] MEDS ORDERED: ceFAZolin/STERILE WATER 2 GM/20 ML SYRINGE IV NR (14:16)
[2019-06-23] MEDS ORDERED: HYDROmorphone 1 MG/1 ML INJ ONE (14:29)
[2019-06-23] MEDS ORDERED: PROPOFOL 200 MG/20 ML VIAL IV ONE (14:29)
[2019-06-23] MEDS ORDERED: IOHEXOL 300 MG/ML 50ML IV ONE (14:57)
[2019-06-23] MEDS ORDERED: ONDANSETRON 4 MG/2 ML INJ ONE (15:28)
[2019-06-23] MEDS ORDERED: LIDOCAINE MPF (2%) 20 MG/1 ML VIAL 5 ML ONE (15:28)
[2019-06-23] MEDS ORDERED: dexAMETHasone 20 MG/5 ML VIAL ONE (15:28)
[2019-06-23] MEDS ORDERED: PHENYLEPHRINE 10 MG/1 ML INJ SDV ONE (15:30)
[2019-06-23] MEDS ORDERED: WATER FOR IRRIG STERILE 1,500 ML BOTTLE IR ONE (15:44)
[2019-06-23] MEDS ORDERED: WATER FOR IRRIG STERILE 2000 ML IR ONE (15:44)
[2019-06-23] MEDS: fentaNYL 100 MCG/2 ML INJ IV PRN ×2 (16:13→16:21)
--- NOTE | 2019-06-23 16:34 | Fluoroscopy Report ---
INTRAOPERATIVE FLUOROSCOPY: ABDOMEN INDICATION: LT RENAL STONE. TECHNIQUE: Intraoperative spot images were obtained during the procedure. FINDINGS: Left renal stones are seen on initial fluoroscopic imaging. Subsequent bilateral retrograde urography is unremarkable. Laser therapy was subsequently performed with placement of a left ureteral stent. Clement perez see the procedure report for further details. Fluoroscopy Time: 4.9 seconds. Fluoroscopy Images: 9. Signer Name: Montana Lemon MD Signed: 06/23/2019 4:30 PM Workstation Name: [id number]
[2019-06-23 17:06] VITALS: BP 106/60
--- NOTE | 2019-06-23 17:26 | Short Stay Summary ---
Short Stay Documentation Date of service: 06/23/19 - History H&P: obtained from office - Allergies and Medications Current Medications: Allergies aspirin Allergy (Verified 06/22/19 14:36) Itching silk tape Allergy (Uncoded 06/22/19 14:36) Itching Home Medications Medication Instructions Recorded Confirmed Last Taken Type ALBUTEROL Inhaler(NF) [VENTOLIN 2 puff IH PRN PRN 11/22/18 06/23/19 12/29/18 History Inhaler(NF)] cefUROXime [Ceftin] 500 mg PO Q12H #20 tablet 03/01/19 06/23/19 06/22/19 08:00 Rx Active Medications Cefazolin Sodium (Ancef/Sterile Water 2 Gm/20 Ml) 2 gm IV PREOP NR Stop: 06/23/19 23:59 Fentanyl (Sublimaze) 50 mcg IV Q5MIN PRN PRN Reason: Pain , Severe (7-10) Stop: 06/23/19 23:59 Last Admin: 06/23/19 16:21 Dose: 50 mcg Documented by: Lactated Ringer's (Lactated Ringers) 1,000 mls @ 100 mls/hr IV DIRECT MAGALY Stop: 06/23/19 23:59 Last Admin: 06/23/19 13:23 Dose: 100 mls/hr Documented by: Midazolam HCl (Versed) 2 mg IV PREOP NR Stop: 06/23/19 23:59 Last Admin: 06/23/19 13:41 Dose: 2 mg Documented by: Ondansetron HCl (Zofran) 4 mg IV ONCE PRN PRN Reason: Nausea And Vomiting Scopolamine (Transderm-Scop) 1 each TD PREOP NR Stop: 06/26/19 13:59 Last Admin: 06/23/19 13:41 Dose: 1 each Documented by: - Brief post op/procedure progress note Date of procedure: 06/23/19 Pre-op diagnosis: left renal stone Post-op diagnosis: same Procedure: left urs, laser, stent [id number] Anesthesia: GETA Findings: 1mm frags left after laser Surgeon: FARZANA HUERTA Estimated blood loss: minimal Pathology: none Condition: stable - Hospital course Hospital course: orpacuhome - Disposition Condition at discharge: Good Disposition: DC-01 TO HOME OR SELFCARE Short Stay Discharge Plan Activity: advance as tolerated Diet: advance as tolerated Additional Instructions: YOU MAY REMOVE THE SCOPOLAMINE PATCH IN 3 DAYS. WASH YOUR HANDS SOON REMOVING PATCH. Follow up with: FARZANA HUERTA MD [Staff Physician] - 14 Days Forms: Outpatient Surgery DC Inst.
[2019-06-23] MEDS ORDERED: HYDROcodone/ACETAMINOPHEN 10-325MG TAB PO PRN (17:49)
--- NOTE | 2019-07-13 06:59 | Operative Report ---
PREOPERATIVE DIAGNOSIS: Left renal stones, left flank pain. POSTOPERATIVE DIAGNOSIS: Left renal stones, left flank pain. PROCEDURE: Left ureteroscopy, holmium laser fragmentation, stent 7 x 26 placement. ANESTHESIA: General. FINDINGS: Multiple left renal frags after laser of 1 mm or less in a dependent position, difficult to access. SURGEON: Parth Stokes MD ESTIMATED BLOOD LOSS: Minimal. PATHOLOGY: None. CONDITION: Stable. CLINICAL INDICATIONS: The patient was counseled on RCBA, antibiotics, SCDs. She was counseled on: 1. Observation. 2. ESWL. 3. Ureteroscopy. 4. Percutaneous procedures and other options. She definitively wanted to go ahead and proceed with ureteroscopy and an increase stent size due to past mild hydro. Antibiotics, SCDs. DESCRIPTION OF PROCEDURE: The patient was transferred to OR suite in supine position, anesthesia, dorsal lithotomy, prepped and draped in standard fashion. A 22-Yi scope passed. Pancystoscopy with 30- and 70-degree lens, no abnormality. Right retrograde pyelogram with 8-Yi cone-tip catheter, normal right distal ureter, proximal ureter, renal pelvis calyces. Repeated on left side with similar normal ureter, pelvis, calyces; may be minimal fullness of the left kidney. At this point, second Glidewire was then passed under fluoroscopic direct visualization. Next, a flexible ureteroscope was passed over one of the Glidewire up to the renal pelvis. No stones in the distal ureter or proximal ureter. Next, we aspirated fluid and injected contrast and inspected upper and lower pole. In the lower pole, there were some stone fragments, some they seem when you flushed them to disperse, but some fragments that could be lasered. Laser was passed to fragment these areas into smaller and smaller pieces until only 1 mm or less fragments left. This was at the point where they were too small to grasp. Of note, contrast was injected even with the scope flexing at 180 degrees in the lower pole to check for any ____. There were some densities, which could be in bowel, which were thought to be separate from the kidney. At this point, the scope was withdrawn. Wire backloaded on the cystoscope. A 7 x 26 double-J stent was passed over the wire under direct fluoroscopic visualization. When the wire and string were removed, there was nice proximal J, nice distal J within the bladder. Bladder drained. No palpable urethral masses. The patient was awakened and transferred to PACU in good and stable condition. JOB# [id number] ATS/NTS
== END 2019-06-23 18:28 | disposition home or self-care (01) ==
LOC: OR 10:47
PROVIDERS: ATTEND Urology
DX: N20.0 Calculus of kidney (principal); G43.909 Migraine, unspecified, not intractable, without status migrainosus; J45.909 Unspecified asthma, uncomplicated; E66.9 Obesity, unspecified; F32.9 Major depressive disorder, single episode, unspecified; F41.9 Anxiety disorder, unspecified; Z88.6 Allergy status to analgesic agent; Z88.8 Allergy status to other drugs, medicaments and biological substances; Z79.899 Other long term (current) drug therapy; Z90.49 Acquired absence of other specified parts of digestive tract; Z68.41 Body mass index [BMI] 40.0-44.9, adult; Z98.51 Tubal ligation status; Z90.710 Acquired absence of both cervix and uterus; Z98.891 History of uterine scar from previous surgery; Z87.440 Personal history of urinary (tract) infections; Z98.890 Other specified postprocedural states
CPT/HCPCS: 52356; 74420; A4217; C1758; C1769; C2617; J1100; J1170; J2250; J2370; J2405; J2704; J3010; J7120; Q9967

== ENCOUNTER 2019-07-12 12:11 | Emergency (ER) | payer OTHER ==
[2019-07-12] MEDS ORDERED: SODIUM CHLORIDE 0.9% 1000 ML 1,000 ML IV ONE (13:28)
[2019-07-12] MEDS ORDERED: ONDANSETRON 4 MG/2 ML INJ IV ONE (13:28)
[2019-07-12] MEDS ORDERED: MORPHINE 4 MG/1 ML INJ IV ONE (13:28)
--- NOTE | 2019-07-12 13:33 | Event Note ---
ED Screening Note Date of service: 07/12/19 Time: 13:30 ED Screening Note: Pt complains of left abdominal pain after ureter stent stent removal x today +hematuria and vomiting This initial assessment/diagnostic orders/clinical plan/treatment(s) is/are subject to change based on patients health status, clinical progression and re- assessment by fellow clinical providers in the ED. Further treatment and workup at subsequent clinical providers discretion. Patient/guardian urged not to elope from the ED as their condition may be serious if not clinically assessed and managed. Initial orders include:
[2019-07-12 16:18] LABS: Hematocrit 44.2 % (30.3-42.9); Hemoglobin 14.5 gm/dl (10.1-14.3); Mean Corpuscular HGB Conc 33 % (30-34); Mean Corpuscular Volume 89 fl (79-97); Platelet Count 391 K/mm3 (140-440); Red Cell Distribution Width 14.2 % (13.2-15.2)
[2019-07-12 16:33] LABS: BUN/Creatinine Ratio 23; Blood Urea Nitrogen 14 mg/dL (7-17); Calcium 9.2 mg/dL (8.4-10.2); Hemolysis Index 13
[2019-07-12] MEDS ORDERED: HYDROmorphone 2 MG/1 ML INJ IV ONE (16:33)
--- NOTE | 2019-07-12 16:35 | Emergency Department Report ---
ED General Adult HPI - General Chief complaint: Abdominal Pain Stated complaint: ABD PAIN/STINT REMOVED Time Seen by Provider: 07/12/19 13:27 Source: patient, RN notes reviewed, old records reviewed Mode of arrival: Ambulatory Limitations: No Limitations - History of Present Illness Initial comments: This is a 34-year-old female. I have evaluated this patient in the past. She does not have a primary care doctor. Her urologist is : Jerrell Peacock I saw this patient in February 2019. She has a history of obesity, kidney stones, asthma, migraine, hypertension, appendectomy, tubal ligation, cholecystectomy. In short, she has chronic left-sided flank and back pain, known kidney stones, and has had extensive and multiple evaluations by urological services. Her urologist of record has offered the pain in the past that her back pain is very very unlikely to be related to stone disease The patient states that she had her left sided renal stent taken out this morning at an outpatient surgical center by her urologist. She states that afterwards, she developed acute on chronic left flank pain and left lower quadrant pain, nausea and vomiting. No fevers. No dysuria. No additional complaints. -: Sudden Location: back, abdomen Radiation: abdomen, flank Severity scale (0 -10): 9 Quality: aching Consistency: constant Improves with: medication, rest Worsens with: movement - Related Data Home Medications Medication Instructions Recorded Confirmed Last Taken ALBUTEROL Inhaler(NF) [VENTOLIN 2 puff IH PRN PRN 11/22/18 06/23/19 12/29/18 Inhaler(NF)] Previous Rx's Medication Instructions Recorded Last Taken Type cefUROXime [Ceftin] 500 mg PO Q12H #20 tablet 03/01/19 06/22/19 08:00 Rx HYDROcodone/APAP 10-325 [[place] 0.5 - 1 each PO Q6HR PRN #25 tablet 06/23/19 Un known Rx 10-325 mg TAB] HYDROcodone/APAP 5-325 [[place] 1 each PO Q6HR PRN #30 tablet 06/23/19 Unknown Rx 5-325 mg TAB] Metoclopramide [Reglan] 10 mg PO QID PRN #30 tablet 07/12/19 Unknown Rx Promethazine HCl [Phenergan SUPPOS] 25 mg RC Q6HR PRN #15 supp.rect 07/12/19 Unknown Rx levoFLOXacin [Levaquin] 750 mg PO QDAY #10 tablet 07/12/19 Unknown Rx oxyCODONE /ACETAMINOPHEN [Percocet 1 tab PO Q6HR PRN #10 tablet 07/12/19 Unknown Rx 5/325] Allergies Allergy/AdvReac Type Severity Reaction Status Date / Time aspirin Allergy Itching Verified 06/22/19 14:36 silk tape Allergy Itching Uncoded 06/22/19 14:36 ED Review of Systems ROS: Stated complaint: ABD PAIN/STINT REMOVED Other details as noted in HPI Constitutional: denies: fever Eyes: denies: eye discharge ENT: denies: congestion Respiratory: denies: wheezing Cardiovascular: denies: syncope Gastrointestinal: abdominal pain, nausea, vomiting Genitourinary: denies: dysuria Musculoskeletal: back pain Skin: denies: lesions Neurological: weakness Psychiatric: anxiety Hematological/Lymphatic: denies: easy bleeding ED Past Medical Hx - Past Medical History Previous Medical History?: Yes Hx Hypertension: Yes (No meds) Hx GERD: Yes Hx Headaches / Migraines: Yes (MIGRAINES) Hx Kidney Stones: Yes Hx Asthma: Yes (last inhaler use in December 2018) Additional medical history: Ovarian cysts. Morbid Obesity - Surgical History Past Surgical History?: Yes Hx Cholecystectomy: Yes Hx Appendectomy: Yes Additional Surgical History: 3 c sections and tubal ligation, appendix removal, hernia surgery, HYSTERECTOMY - Social History Smoking Status: Never Smoker Substance Use Type: None - Medications Home Medications: Home Medications Medication Instructions Recorded Confirmed Last Taken Type ALBUTEROL Inhaler(NF) [VENTOLIN 2 puff IH PRN PRN 11/22/18 06/23/19 12/29/18 History Inhaler(NF)] cefUROXime [Ceftin] 500 mg PO Q12H #20 tablet 03/01/19 06/23/19 06/22/19 08:00 Rx HYDROcodone/APAP 10-325 [[place] 0.5 - 1 each PO Q6HR PRN #25 tablet 06/23/19 Unknown Rx 10-325 mg TAB] HYDROcodone/APAP 5-325 [[place] 1 each PO Q6HR PRN #30 tablet 06/23/19 Unknown Rx 5-325 mg TAB] Metoclopramide [Reglan] 10 mg PO QID PRN #30 tablet 07/12/19 Unknown Rx Promethazine HCl [Phenergan SUPPOS] 25 mg RC Q6HR PRN #15 supp.rect 07/12/19 Unknown Rx levoFLOXacin [Levaquin] 750 mg PO QDAY #10 tablet 07/12/19 Unknown Rx oxyCODONE /ACETAMINOPHEN [Percocet 1 tab PO Q6HR PRN #10 tablet 07/12/19 Unknown Rx 5/325] ED Physical Exam - General Limitations: No Limitations General appearance: alert, anxious, in distress, obese - Head Head exam: Present: atraumatic, normocephalic - Eye Eye exam: Present: normal appearance, EOMI. Absent: nystagmus - ENT ENT exam: Present: normal exam, normal orophraynx, mucous membranes moist, normal external ear exam - Neck Neck exam: Present: normal inspection, full ROM. Absent: tenderness, meningismu s - Respiratory Respiratory exam: Present: normal lung sounds bilaterally. Absent: respiratory distress - Cardiovascular Cardiovascular Exam: Present: normal rhythm, tachycardia, normal heart sounds. Absent: systolic murmur, diastolic murmur, rubs, gallop - GI/Abdominal GI/Abdominal exam: Present: soft, tenderness, other (there is left flank tenderness. There is left lower quadrant tenderness. There is no rebound, guarding or peritoneal sign.). Absent: distended, guarding, rigid, pulsatile mass - Extremities Exam Extremities exam: Present: normal inspection, full ROM, other (2+ pulses noted in the bilateral upper, lower extremities. There is no long bone tenderness. Musculoskeletal compartments are soft. The pelvis is stable.). Absent: pedal edema, joint swelling, calf tenderness - Back Exam Back exam: Present: normal inspection, full ROM, CVA tenderness (L), paraspinal tenderness. Absent: CVA tenderness (R), vertebral tenderness - Neurological Exam Neurological exam: Present: alert, other (there is no facial droop. The tongue is midline. Extraocular movements are intact bilaterally. Patient speaking in full complete sentences. Shoulder shrug is intact bilaterally. Hearing is grossly intact bilaterally. Visual acuity intact to finger counting and color perception at a close distance. 5/5 strength 4 extremities. Sensation intact to light touch in 4 extremities.). Absent: motor sensory deficit - Psychiatric Psychiatric exam: Present: anxious - Skin Skin exam: Present: warm, dry, intact, normal color. Absent: rash ED Course Vital Signs 07/12/19 07/12/19 13:27 16:09 Temperature 97.3 F L Pulse Rate 96 H 87 Respiratory 20 17 Rate Blood Pressure 155/100 Blood Pressure 152/87 [Left] O2 Sat by Pulse 98 99 Oximetry - Reevaluation(s) Reevaluation #1: 07/12/19 18:04 Differential diagnosis, including but not limited to: Ureteral spasm, laceration, infection, bleeding, damage to adjacent structures, retained stone Assessment and plan: 34-year-old female with recurrent left-sided flank pain. I have evaluated this patient in the past for similar complaints. She is afebrile with reassuring vital signs and tachycardia has resolved. After aggressive therapy with hydromorphone, she is sleeping comfortably, in his stretcher, with no active vomiting, and she is in no acute distress. Screening laboratory studies are reviewed and appreciated. Leukocytosis is likely secondary to a stress reaction. I contacted her urologist on-call, Dr. Peacock, and we talked about her history, physical. We both familiar with this patient. We will obtain CT scan of the abdomen pelvis, screening laboratory studies, urinalysis and reassess. If no acute surgical injury is identified on CT scan, her urologist has agreed to follow the patient up closely as an outpatient. Reevaluation #2: 07/12/19 19:43 Patient is reevaluated multiple times. She is sleeping comfortably at this time, and in no acute distress. Urinalysis reveals a sterile pyuria. CT scan abdomen pelvis does not appear to demonstrate any acute emergent condition at this time. Chronic findings are noted. Contacted her urologist of record, Dr. Jerrell Peacock He is agreeable to ceftriaxone/antibiotics at this time, indicates that pyuria is expected with instrumentation and stent. 07/12/19 21:31 Patient observed in this department for an extended a prolonged period of time. No active vomiting noted. Vital signs remained stable. We discussed with her private urologist, Dr. Peacock He is agreeable to see the patient tomorrow or in 2 days for repeat checkup and evaluation. He is agreeable to antibiotic therapy. We discussed her laboratory studies, CT scan findings. Reevaluation #3: 07/12/19 21:40 Patient eating ice chips. Playing on her cellular phone. Indicates that she feels improved. ED Medical Decision Making - Lab Data Result diagrams: 07/12/19 15:50 07/12/19 15:50 Vital Signs 07/12/19 07/12/19 13:27 16:09 Temperature 97.3 F L Pulse Rate 96 H 87 Respiratory 20 17 Rate Blood Pressure 155/100 Blood Pressure 152/87 [Left] O2 Sat by Pulse 98 99 Oximetry Lab Results 07/12/19 07/12/19 07/12/19 Range/Units 15:50 15:50 16:33 WBC 14.7 H (4.5-11.0) K/mm3 RBC 5.00 (3.65-5.03) M/mm3 Hgb 14.5 H (10.1-14.3) gm/dl Hct 44.2 H (30.3-42.9) % MCV 89 (79-97) fl MCH 29 (28-32) pg MCHC 33 (30-34) % RDW 14.2 (13.2-15.2) % Plt Count 391 (140-440) K/mm3 Sodium 138 (137-145) mmol/L Potassium 4.1 (3.6-5.0) mmol/L Chloride 105.1 (98-107) mmol/L Carbon Dioxide 18 L (22-30) mmol/L Anion Gap 19 mmol/L BUN 14 (7-17) mg/dL Creatinine 0.6 L (0.7-1.2) mg/dL Estimated GFR > 60 ml/min BUN/Creatinine Ratio 23 % Glucose 112 H (65-100) mg/dL Calcium 9.2 (8.4-10.2) mg/dL Magnesium 2.10 (1.7-2.3) mg/dL Total Creatine Kinase 43 (30-135) units/L - Radiology Data Radiology results: report reviewed, image reviewed Print Report Referring Physician: CRYS ARREDONDO Patient Name: EDILBERTO BECKETT Date of : 1985 Sex: Female Report Date: 2019-07-12 Report Status: Finalized Findings [facility] [address] [place] [address] Cat Scan Report Signed Patient: EDILBERTO BECKETT MR#: [id number] 1 : 1985 Acct:[id number] Age/Sex: 34 / F ADM Date: 07/12/19 Loc: ED Attending Dr: Ordering Physician: CRYS ARREDONDO MD Date of Service: 07/12/19 Procedure(s): CT abdomen pelvis w con Accession Number(s): [id number] cc: CRYS ARREDONDO MD CT abdomen pelvis w con INDICATION: Left flank pain status post procedure TECHNIQUE: All CT scans at this location are performed using the following dose modulation technique: Automated exposure control. Helical slices were obtained through the abdomen and pelvis. 100 cc of Omnipaque 300 is administered. COMPARISON: CT scan dated 03/21/2019 FINDINGS: Abdomen: Lung bases are clear. Is fatty infiltration of liver. The spleen, pancreas, adrenal glands, and right kidney are unchanged in appearance. There is a tiny cyst in the lower pole the right kidney which is unchanged. There is moderate left hydroureteronephrosis. No ureteral calculi are seen. Calyceal stones are noted in the lower pole of the left kidney. Double-J stent present on the prior study has been removed in the interval. There is no adenopathy. There is a retroaortic left renal vein. Pelvis: There is a 4.4 cm cyst in the left ovary. This measured approximately 6 cm previously. There is no adenopathy. There is a small amount of air in the urinary bladder presumably iatrogenic. On review of bone windows, no acute osseous abnormalities are seen. IMPRESSION: 1. There is moderate left hydroureteronephrosis. There are stones in the lower pole calyx of the left kidney. There are no ureteral calculi. There is a left ovarian cyst is decreased in size from the prior study. Signer Name: Jay Sinha MD Signed: 07/12/2019 7:03 PM Workstation Name: [id number] Transcribed By: Dictated By: Jay Sinha MD Electronically Authenticated By: Jay Sinha MD Signed Date/Time: 07/12/191902 DD/ 56 TD/TT: Critical care attestation.: If time is entered above; I have spent that time in minutes in the direct care of this critically ill patient, excluding procedure time. ED Disposition Clinical Impression: Flank pain Disposition: DC-01 TO HOME OR SELFCARE Is pt being admited?: No Does the pt Need Aspirin: No Condition: Stable Additional Instructions: Take the antibiotics as directed, pain medicine as needed and directed, nausea medicine, Reglan, as needed and directed. Use Phenergan suppository as needed for intractable nausea, vomiting. If taking Percocet for pain, do not drive, consume alcohol, or make important decisions. Recommend following up with your private urologist within the next 1-2 days. Contacted your private urologist, Dr. Jerrell Stokes, and he states that you should call the office tomorrow, , and follow-up tomorrow, July 13, or July 14. Cultures were sent today, and results will be available in the next 3-5 days. Have your private urologist contact medical records department to obtain culture results. Return to the emergency room right away with projectile vomiting, change in mental status, confusion, inability to tolerate liquid feeds, new, worsened or different symptoms not present on the initial emergency room evaluation. Prescriptions: levoFLOXacin [Levaquin] 750 mg PO QDAY #10 tablet oxyCODONE /ACETAMINOPHEN [Percocet 5/325] 1 tab PO Q6HR PRN #10 tablet PRN Reason: Pain Promethazine HCl [Phenergan SUPPOS] 25 mg RC Q6HR PRN #15 supp.rect PRN Reason: Nausea Metoclopramide [Reglan] 10 mg PO QID PRN #30 tablet PRN Reason: Nausea Referrals: FARZANA STOKES MD [Staff Physician] - 3-5 Days
[2019-07-12] MEDS ORDERED: SODIUM CHLORIDE 0.9% 1000 ML 1,000 ML ONE (16:46)
[2019-07-12] MEDS ORDERED: ONDANSETRON 4 MG/2 ML INJ ONE (16:46)
[2019-07-12] MEDS ORDERED: oxyCODONE /ACETAMINOPHEN 5-325MG TAB PO ONE (18:11)
[2019-07-12 18:42] LABS: Bilirubin,Urine NEG (Negative); Blood,Urine LG (Negative); Color,Urine Yellow (Yellow); Mucus,Urine FEW /HPF; Urobilinogen,Urine < 2.0 mg/dL (<2.0); WBC,Urine > 182.0 /HPF (0.0-6.0)
--- NOTE | 2019-07-12 19:07 | Cat Scan Report ---
CT abdomen pelvis w con INDICATION: Left flank pain status post procedure TECHNIQUE: All CT scans at this location are performed using the following dose modulation technique: Automated exposure control. Helical slices were obtained through the abdomen and pelvis. 100 cc of Omnipaque 30 0 is administered. COMPARISON: CT scan dated 03/21/2019 FINDINGS: Abdomen: Lung bases are clear. Is fatty infiltration of liver. The spleen, pancreas, adrenal glands, and right kidney are unchanged in appearance. There is a tiny cyst in the lower pole the right kidney which is unchanged. There is moderate left hydroureteronephrosis. No ureteral calculi are seen. Calyceal stones are noted in the lower pole of the left kidney. Double-J stent present on the prior study has been removed in the interval. There is no adenopathy. There is a retroaortic left renal vein. Pelvis: There is a 4.4 cm cyst in the left ovary. This measured approximately 6 cm previously. There is no adenopathy. There is a small amount of air in the urinary bladder presumably iatrogenic. On review of bone windows, no acute osseous abnormalities are seen. IMPRESSION: 1. There is moderate left hydroureteronephrosis. There are stones in the lower pole calyx of the left kidney. There are no ureteral calculi. There is a left ovarian cyst is decreased in size from the prior study. Signer Name: Jay Sinha MD Signed: 07/12/2019 7:03 PM Workstation Name: [id number]
[2019-07-12] MEDS ORDERED: cefTRIAXone/NS 1 GM/50 ML 1 GM/50 ML BAG IV ONE (19:43)
[2019-07-12] MEDS ORDERED: METOCLOPRAMIDE 10 MG/2 ML INJ IV ONE (20:42)
[2019-07-12 21:49] VITALS: BP 113/68
== END 2019-07-12 21:50 | disposition home or self-care (01) ==
LOC: ED 12:11
DX: R10.9 Unspecified abdominal pain (principal); M54.9 Dorsalgia, unspecified; F41.9 Anxiety disorder, unspecified; I10 Essential (primary) hypertension; K21.9 Gastro-esophageal reflux disease without esophagitis; G43.909 Migraine, unspecified, not intractable, without status migrainosus; J45.909 Unspecified asthma, uncomplicated
CPT/HCPCS: 36415; 74177; 80048; 81001; 82550; 83735; 85027; 87086; 96361; 96365; 96375; 99284; J0696; J1170; J2405; J2765; J7030

== ENCOUNTER 2019-09-17 20:19 | Emergency (ER) | payer OTHER ==
[2019-09-17] MEDS ORDERED: SODIUM CHLORIDE 0.9% 500 ML 500 ML IV ONE (22:10)
[2019-09-17 23:06] LABS: Basophils # (Auto) 0.1 K/mm3 (0.0-0.1); Basophils % (Auto) 1.1 % (0.0-1.8); Eosinophils # (Auto) 0.5 K/mm3 (0.0-0.4); Eosinophils % (Auto) 3.6 % (0.0-4.3); Hematocrit 43.1 % (30.3-42.9); Hemoglobin 14.3 gm/dl (10.1-14.3); Lymphocytes # (Auto) 2.9 K/mm3 (1.2-5.4); Lymphocytes % (Auto) 22.7 % (13.4-35.0); Mean Corpuscular HGB Conc 33 % (30-34); Mean Corpuscular Volume 89 fl (79-97); Monocytes # (Auto) 0.8 K/mm3 (0.0-0.8); Monocytes % (Auto) 6.5 % (0.0-7.3); Platelet Count 510 K/mm3 (140-440); Red Blood Count 4.83 M/mm3 (3.65-5.03); Red Cell Distribution Width 13.9 % (13.2-15.2)
[2019-09-17 23:17] LABS: INR 0.92 (0.87-1.13)
[2019-09-17 23:20] LABS: Alanine Aminotransferase 39 units/L (7-56); Albumin 3.8 g/dL (3.9-5); BUN/Creatinine Ratio 22; Blood Urea Nitrogen 11 mg/dL (7-17); Calcium 9.5 mg/dL (8.4-10.2); Hemolysis Index 1
--- NOTE | 2019-09-17 23:46 | XRay Report ---
CHEST 1 VIEW INDICATION: possible Sepsis. COMPARISON: None. FINDINGS: Support devices: None. Heart: Normal. Lungs/Pleura: No acute pulmonary or pleural findings. IMPRESSION: 1. No acute findings. Signer Name: Brent Delacruz MD Signed: 09/17/2019 11:42 PM Workstation Name: [id number]
[2019-09-17] MEDS ORDERED: ONDANSETRON 4 MG/2 ML INJ IV ONE (23:48)
[2019-09-17] MEDS ORDERED: MORPHINE 4 MG/1 ML INJ IV ONE (23:48)
--- NOTE | 2019-09-17 23:49 | Emergency Department Report ---
ED General Adult HPI - General Chief complaint: Wound/Laceration Stated complaint: POST OP ABD PAIN Time Seen by Provider: 09/17/19 22:55 Source: patient, RN notes reviewed, old records reviewed Mode of arrival: Stretcher Limitations: No Limitations - History of Present Illness Initial comments: During the entire history and physical examination, I am transit specialist escorted by nurse Mariajose Covarrubias Urology: [facility], Dr Peacock FISH SEINER: Dr Cara Palma; [phone]; [phone]; [phone]; Rachid Bicycle Mechanic This is a 34-year-old female whom I have evaluated multiple times in the past. She has a history of recurrent left-sided flank pain, chronic leukocytosis, history of calyceal kidney stones, history of stents, insertion and removal Her urologist of record in the past is offered that her chronic left-sided pain is very unlikely to be related to symptomatic renal colic She presents today with a complaint of chronic left-sided abdominal pain, reports fever of 102 2 days ago, and reports that she had a left-sided oophorectomy by the aforementioned supervisor concrete stone finishing 6 days ago, at their outpatient facility. The patient makes no complaint of headache, neck pain, chest pain, exertional shortness of breath, vomiting, she does report that she has stabbing discomfort during urination The patient states that she came here his symptoms go to her CH[facility] OPERATOR's office because we are closer to where she lives. -: Gradual, hour(s), month(s) Location: back, abdomen Radiation: back Quality: aching Consistency: constant Improves with: medication, rest Worsens with: movement - Related Data Home Medications Medication Instructions Recorded Confirmed Last Taken ALBUTEROL Inhaler(NF) [VENTOLIN 2 puff IH PRN PRN 11/22/18 06/23/19 12/29/18 Inhaler(NF)] Previous Rx's Medication Instructions Recorded Last Taken Type cefUROXime [Ceftin] 500 mg PO Q12H #20 tablet 03/01/19 06/22/19 08:00 Rx HYDROcodone/APAP 10-325 [[place] 0.5 - 1 each PO Q6HR PRN #25 tablet 06/23/19 Unknown Rx 10-325 mg TAB] HYDROcodone/APAP 5-325 [[place] 1 each PO Q6HR PRN #30 tablet 06/23/19 Unknown Rx 5-325 mg TAB] Metoclopramide [Reglan] 10 mg PO QID PRN #30 tablet 07/12/19 Unknown Rx Promethazine HCl [Phenergan SUPPOS] 25 mg RC Q6HR PRN #15 supp.rect 07/12/19 Unknown Rx levoFLOXacin [Levaquin] 750 mg PO QDAY #10 tablet 07/12/19 Unknown Rx oxyCODONE /ACETAMINOPHEN [Percocet 1 tab PO Q6HR PRN #10 tablet 07/12/19 Unknown Rx 5/325] Allergies Allergy/AdvReac Type Severity Reaction Status Date / Time aspirin Allergy Itching Verified 06/22/19 14:36 silk tape Allergy Itching Uncoded 06/22/19 14:36 ED Review of Systems ROS: Stated complaint: POST OP ABD PAIN Other details as noted in HPI Constitutional: fever Eyes: denies: eye discharge ENT: denies: congestion Respiratory: denies: wheezing Cardiovascular: denies: syncope Gastrointestinal: abdominal pain Genitourinary: other (stabbing pain during urination). denies: dysuria Musculoskeletal: back pain Skin: other (scant discharge from surgical site) Hematological/Lymphatic: denies: easy bleeding ED Past Medical Hx - Past Medical History Previous Medical History?: Yes Hx Hypertension: Yes (No meds) Hx GERD: Yes Hx Headaches / Migraines: Yes (MIGRAINES) Hx Kidney Stones: Yes Hx Asthma: Yes (last inhaler use in December 2018) Additional medical history: Ovarian cysts. Morbid Obesity, MRSA x 4 (face, buttocks, legs) - Surgical History Past Surgical History?: Yes Hx Cholecystectomy: Yes Hx Appendectomy: Yes Additional Surgical History: 3 c sections and tubal ligation, appendix removal, hernia surgery, HYSTERECTOMY, Had left ovary removed this past Thursday - Social History Smoking Status: Never Smoker - Medications Home Medications: Home Medications Medication Instructions Recorded Confirmed Last Taken Type ALBUTEROL Inhaler(NF) [VENTOLIN 2 puff IH PRN PRN 11/22/18 06/23/19 12/29/18 History Inhaler(NF)] cefUROXime [Ceftin] 500 mg PO Q12H #20 tablet 03/01/19 06/23/19 06/22/19 08:00 Rx HYDROcodone/APAP 10-325 [[place] 0.5 - 1 each PO Q6HR PRN #25 tablet 06/23/19 U nknown Rx 10-325 mg TAB] HYDROcodone/APAP 5-325 [[place] 1 each PO Q6HR PRN #30 tablet 06/23/19 Unknown Rx 5-325 mg TAB] Metoclopramide [Reglan] 10 mg PO QID PRN #30 tablet 07/12/19 Unknown Rx Promethazine HCl [Phenergan SUPPOS] 25 mg RC Q6HR PRN #15 supp.rect 07/12/19 Unknown Rx levoFLOXacin [Levaquin] 750 mg PO QDAY #10 tablet 07/12/19 Unknown Rx oxyCODONE /ACETAMINOPHEN [Percocet 1 tab PO Q6HR PRN #10 tablet 07/12/19 Unknown Rx 5/325] ED Physical Exam - General Limitations: No Limitations General appearance: alert, in no apparent distress - Head Head exam: Present: atraumatic, normocephalic - Eye Eye exam: Present: normal appearance, EOMI - ENT ENT exam: Present: normal exam, normal orophraynx, mucous membranes moist, normal external ear exam - Neck Neck exam: Present: normal inspection, full ROM. Absent: tenderness, meningismus - Respiratory Respiratory exam: Present: normal lung sounds bilaterally. Absent: respiratory distress - Cardiovascular Cardiovascular Exam: Present: regular rate, normal rhythm, normal heart sounds. Absent: bradycardia, tachycardia, irregular rhythm, systolic murmur, diastolic murmur, rubs, gallop - GI/Abdominal GI/Abdominal exam: Present: soft, other (postsurgical ecchymosis is noted. There is a linear surgical incision noted, with sutures in place, minimal discharge noted, no active dehiscence is noted). Absent: distended, tenderness, guarding, rebound, rigid, pulsatile mass - Extremities Exam Extremities exam: Present: normal inspection, full ROM, other (2+ pulses noted in the bilateral upper and lower extremities. There is no long bony tenderness. The muscular compartments are soft. The pelvis is stable.). Absent: pedal edema, calf tenderness - Back Exam Back exam: Present: normal inspection. Absent: tenderness, CVA tenderness (R), CVA tenderness (L), paraspinal tenderness, vertebral tenderness - Neurological Exam Neurological exam: Present: alert, oriented X3, normal gait, other (there is no facial droop. The tongue is midline. The extraocular movements are intact bilaterally. Moving 4 extremities spontaneously. Sensation is intact to light touch in 4 extremities spontaneously. Age-appropriate mental status.). Absent: motor sensory deficit - Psychiatric Psychiatric exam: Present: normal affect, normal mood - Skin Skin exam: Present: warm ED Course Vital Signs 09/17/19 09/17/19 09/18/19 20:52 23:50 00:01 Temperature 98.6 F 97.8 F Pulse Rate 111 H 88 88 Respiratory 18 18 16 Rate Blood Pressure 145/94 108/56 O2 Sat by Pulse 96 99 100 Oximetry - Reevaluation(s) Reevaluation #1: 09/18/19 02:04 Differential diagnosis, including but not limited to: Postoperative abscess, seroma, postoperative pain, narcotic dependence, urinary tract infection, chronic left-sided hydronephrosis Assessment and plan: 34-year-old female presenting with complaint of chronic left-sided abdominal pain, recently had left-sided oophorectomy performed, tachycardia resolved, no active fever in the ER, afebrile with reassuring vital signs. I contacted her supervisor concrete stone finishing of record, Dr Cara Palma, he knows that patient has a close outpatient follow-up appointment in his office 2 days, this Thursday, the . Plan is to obtain CT scan of the abdomen and pelvis, give IV fluids, pain medication, urinalysis, and reassess. If no acute postsurgical complications are noted, we both agree to discharge patient to follow-up. Reevaluation #2: 09/18/19 02:55 CT scan shows no emergent findings. Expected postoperative findings noted. On reevaluation's, patient noted to be playing on a cellular phone. Urinalysis reviewed and appreciated. Patient has follow-up in 2 days. Patient does not meet criteria for hospitalization, or transfer at this time. Weightbearing as tolerated, physical activities as tolerated, she should continue the outpatient medications that were prescribed to her by her supervisor concrete stone finishing, she can be discharged to follow-up with her outpatient supervisor concrete stone finishing on Thursday. ED Medical Decision Making - Lab Data Result diagrams: 09/17/19 22:35 09/17/19 22:35 Vital Signs 09/17/19 09/17/19 09/18/19 20:52 23:50 00:01 Temperature 98.6 F 97.8 F Pulse Rate 111 H 88 88 Respiratory 18 18 16 Rate Blood Pressure 145/94 108/56 O2 Sat by Pulse 96 99 100 Oximetry Lab Results 09/17/19 09/17/19 09/17/19 Range/Units 22:35 22:35 22:35 WBC 12.9 H (4.5-11.0) K/mm3 RBC 4.83 (3.65-5.03) M/mm3 Hgb 14.3 (10.1-14.3) gm/dl Hct 43.1 H (30.3-42.9) % MCV 89 (79-97) fl MCH 30 (28-32) pg MCHC 33 (30-34) % RDW 13.9 (13.2-15.2) % Plt Count 510 H (140-440) K/mm3 Lymph % (Auto) 22.7 (13.4-35.0) % Perkins % (Auto) 6.5 (0.0-7.3) % Eos % (Auto) 3.6 (0.0-4.3) % Baso % (Auto) 1.1 (0.0-1.8) % Lymph # 2.9 (1.2-5.4) K/mm3 Perkins # 0.8 (0.0-0.8) K/mm3 Eos # 0.5 H (0.0-0.4) K/mm3 Baso # 0.1 (0.0-0.1) K/mm3 Seg Neutrophils % 66.1 (40.0-70.0) % Seg Neutrophils # 8.6 H (1.8-7.7) K/mm3 PT 12.4 (12.2-14.9) Sec. INR 0.92 (0.87-1.13) VBG pH (7.320-7.420) Sodium (137-145) mmol/L Potassium (3.6-5.0) mmol/L Chloride (98-107) mmol/L Carbon Dioxide (22-30) mmol/L Anion Gap mmol/L BUN (7-17) mg/dL Creatinine (0.7-1.2) mg/dL Estimated GFR ml/min BUN/Creatinine Ratio % Glucose (65-100) mg/dL Lactic Acid (0.7-2.0) mmol/L Calcium (8.4-10.2) mg/dL Total Bilirubin (0.1-1.2) mg/dL AST (5-40) units/L ALT (7-56) units/L Alkaline Phosphatase (35-129) units/L Total Protein (6.3-8.2) g/dL Albumin (3.9-5) g/dL Albumin/Globulin Ratio % HCG, Qual Negative (Negative) 09/17/19 09/17/19 09/17/19 Range/Units 22:35 22:35 22:35 WBC (4.5-11.0) K/mm3 RBC (3.65-5.03) M/mm3 Hgb (10.1-14.3) gm/dl Hct (30.3-42.9) % MCV (79-97) fl MCH (28-32) pg MCHC (30-34) % RDW (13.2-15.2) % Plt Count (140-440) K/mm3 Lymph % (Auto) (13.4-35.0) % Perkins % (Auto) (0.0-7.3) % Eos % (Auto) (0.0-4.3) % Baso % (Auto) (0.0-1.8) % Lymph # (1.2-5.4) K/mm3 Perkins # (0.0-0.8) K/mm3 Eos # (0.0-0.4) K/mm3 Baso # (0.0-0.1) K/mm3 Seg Neutrophils % (40.0-70.0) % Seg Neutrophils # (1.8-7.7) K/mm3 PT (12.2-14.9) Sec. INR (0.87-1.13) VBG pH 7.372 (7.320-7.420) Sodium 138 (137-145) mmol/L Potassium 4.2 (3.6-5.0) mmol/L Chloride 103.3 (98-107) mmol/L Carbon Dioxide 20 L (22-30) mmol/L Anion Gap 19 mmol/L BUN 11 (7-17) mg/dL Creatinine 0.5 L (0.7-1.2) mg/dL Estimated GFR > 60 ml/min BUN/Creatinine Ratio 22 % Glucose 120 H (65-100) mg/dL Lactic Acid 1.80 (0.7-2.0) mmol/L Calcium 9.5 (8.4-10.2) mg/dL Total Bilirubin 0.40 (0.1-1.2) mg/dL AST 22 (5-40) units/L ALT 39 (7-56) units/L Alkaline Phosphatase 81 (35-129) units/L Total Protein 7.8 (6.3-8.2) g/dL Albumin 3.8 L (3.9-5) g/dL Albumin/Globulin Ratio 1.0 % HCG, Qual (Negative) - EKG Data -: EKG Interpreted by [facility] EKG shows normal: sinus rhythm Rate: normal - EKG Data 09/18/19 02:07 The EKG today shows a sinus rhythm, 97 bpm, normal axis, QTC is 466 ms, there is low voltage, there is no endorsement of chest pain, there is no tachycardia, the EKG is not consistent with STEMI - Radiology Data Radiology results: pending, report reviewed, image reviewed Print Report Referring Physician: CRYS ARREDONDO Patient Name: EDILBERTO BECKETT Date of : 1985 Sex: Female Report Date: 2019-09-18 Report Status: [place] [address] Cat Scan Report Signed Patient: EDILBERTO BECKETT MR#: [id number] 1 : 1985 Acct:[id number] Age/Sex: 34 / F ADM Date: 09/17/19 Loc: ED Attending Dr: Ordering Physician: CRYS ARREDONDO MD Date of Service: 09/18/19 Procedure(s): CT abdomen pelvis w con Accession Number(s): [id number] cc: CRYS ARREDONDO MD CT ABDOMEN AND PELVIS WITH IV CONTRAST INDICATION: post op pain, s/p left ovarian procedure. iv and o. COMPARISON: CT 05/12/2019. TECHNIQUE: All CT scans at this facility use dose modulation, automated exposure control, iterative reconstruction or weight based dosing, when appropriate, to reduce radiation dos e to as low as reasonably achievable. FINDINGS: Lung Bases: No significant abnormality. Skeletal System: No acute abnormality. ABDOMEN: Liver: Hepatic steatosis. Gallbladder: Removed. Bile Ducts: No significant abnormality. Pancreas: No significant abnormality. Spleen: No significant abnormality. Adrenals: No significant abnormality. Right Kidney: No significant abnormality. Left Kidney: There is a left renal caliectasis. Left renal pelvis and left ureter are nondilated. Lower pole nonobstructing stone is noted. Upper GI tract: No significant abnormality. Lymph Nodes: No significant adenopathy. Aorta: No significant abnormality. Additional Findings: No significant abnormality. PELVIS: Colon: No acute abnormality. Urinary Bladder and Distal Ureters: No significant abnormality. Appendix: Not visualized. Lymph Nodes: No significant adenopathy. Additional Findings: There are postsurgical changes within the suprapubic pelvis and in the lower anterior pelvic wall. Trace postoperative gas is seen in the pretracheal fascia and left rectus musculature. There is a superficial subcutaneous soft tissue nodule in the right lower quadrant anterior abdominal wall on image 149. IMPRESSION: 1. Postoperative changes in the pelvis, as above related to recent surgery. No free fluid, free air, or fluid collection is seen. No bowel obstruction. 2. Incidental findings, as above. Signer Name: Brent Delacruz MD Signed: 09/18/2019 2:07 AM Workstation Name: [id number] Transcribed By: NISHA Dictated By: Brent Delacruz MD Electronically Authenticated By: Brent Delacruz MD Signed Date/Time: 09/18/19 0207 Critical care attestation.: If time is entered above; I have spent that time in minutes in the direct care of this critically ill patient, excluding procedure time. ED Disposition Clinical Impression: Abdominal pain Qualifiers: Abdominal location: left lower quadrant Qualified Code(s): R10.32 - Left lower quadrant pain Disposition: - TO HOME OR SELFCARE Is pt being admited?: No Does the pt Need Aspirin: No Condition: Stable Additional Instructions: Rest, avoid heavy lifting, and avoid strenuous physical activities. Continue current outpatient medications. Do not take metformin medication, if patient takes his medication, for the next 2 days. Follow-up with her supervisor concrete stone finishing on Thursday as scheduled. Return to the emergency room right away with new pain, worsened pain, migration of pain, projectile vomiting, change in mental status, confusion, inability to tolerate liquid feeds, new, worse and different symptoms not present on the initial emergency room evaluation. Laboratory studies today were at baseline when compared to prior, CT scan of the abdomen and pelvis today showed expected postoperative changes, without any findings that would require emergent transfer or operative intervention. Patient is most likely experiencing natural expected history of postoperative pain. Referrals: cara palma [Other] - 3-5 Days
--- NOTE | 2019-09-18 02:12 | Cat Scan Report ---
CT ABDOMEN AND PELVIS WITH IV CONTRAST INDICATION: post op pain, s/p left ovarian procedure. iv and o. COMPARISON: CT 05/12/2019. TECHNIQUE: All CT scans at this facility use dose modulation, automated exposure control, iterative reconstructi on or weight based dosing, when appropriate, to reduce radiation dose to as low as reasonably achieva ble. FINDINGS: Lung Bases: No significant abnormality. Skeletal System: No acute abnormality. ABDOMEN: Liver: Hepatic steatosis. Gallbladder: Removed. Bile Ducts: No significant abnormality. Pancreas: No significant abnormality. Spleen: No significant abnormality. Adrenals: No significant abnormality. Right Kidney: No significant abnormality. Left Kidney: There is a left renal caliectasis. Left renal pelvis and left ureter are nondilated. Low er pole nonobstructing stone is noted. Upper GI tract: No significant abnormality. Lymph Nodes: No significant adenopathy. Aorta: No significant abnormality. Additional Findings: No significant abnormality. PELVIS: Colon: No acute abnormality. Urinary Bladder and Distal Ureters: No significant abnormality. Appendix: Not visualized. Lymph Nodes: No significant adenopathy. Additional Findings: There are postsurgical changes within the suprapubic pelvis and in the lower ant erior pelvic wall. Trace postoperative gas is seen in the pretracheal fascia and left rectus musculat ure. There is a superficial subcutaneous soft tissue nodule in the right lower quadrant anterior abdo gaudencio wall on image 149. IMPRESSION: 1. Postoperative changes in the pelvis, as above related to recent surgery. No free fluid, free air, or fluid collection is seen. No bowel obstruction. 2. Incidental findings, as above. Signer Name: Brent Delacruz MD Signed: 09/18/2019 2:07 AM Workstation Name: [email or web address]
[2019-09-18 02:29] LABS: Bacteria,Urine 1+ /HPF (Negative); Bilirubin,Urine NEG (Negative); Blood,Urine NEG (Negative); Color,Urine Yellow (Yellow); Mucus,Urine FEW /HPF; Protein,Urine <15 mg/dL mg/dL (Negative); Urobilinogen,Urine < 2.0 mg/dL (<2.0)
[2019-09-18 03:09] VITALS: BP 100/54
== END 2019-09-18 03:20 | disposition home or self-care (01) ==
LOC: ED 20:19
DX: R10.32 Left lower quadrant pain (principal); R50.9 Fever, unspecified; I10 Essential (primary) hypertension; K21.9 Gastro-esophageal reflux disease without esophagitis; G43.909 Migraine, unspecified, not intractable, without status migrainosus; J45.909 Unspecified asthma, uncomplicated; Z90.49 Acquired absence of other specified parts of digestive tract
CPT/HCPCS: 36415; 71045; 74176; 80053; 81001; 82140; 82805; 84703; 85025; 85610; 87086; 93005; 93010; 96374; 96375; 99285; J2270; J2405; J7040; 74177

== ENCOUNTER 2020-01-29 09:17 | Observation (INO) | payer OTHER ==
--- NOTE | 2020-01-29 10:08 | XRay Report ---
CHEST 2 VIEWS INDICATION / CLINICAL INFORMATION: Chest Pain. COMPARISON: 09/17/2019 FINDINGS: SUPPORT DEVICES: None. HEART / MEDIASTINUM: No significant abnormality. LUNGS / PLEURA: No significant pulmonary or pleural abnormality. No pneumothorax. ADDITIONAL FINDINGS: No significant additional findings. IMPRESSION: 1. No acute findings. Signer Name: Jethro Douglass MD Signed: 01/29/2020 10:04 AM Workstation Name: [id number]
[2020-01-29 10:17] LABS: Basophils # (Auto) 0.1 K/mm3 (0.0-0.1); Basophils % (Auto) 0.8 % (0.0-1.8); Eosinophils % (Auto) 0.3 % (0.0-4.3); Hematocrit 41.7 % (30.3-42.9); Hemoglobin 13.8 gm/dl (10.1-14.3); Lymphocytes # (Auto) 1.9 K/mm3 (1.2-5.4); Lymphocytes % (Auto) 17.8 % (13.4-35.0); Mean Corpuscular HGB Conc 33 % (30-34); Mean Corpuscular Volume 88 fl (79-97); Monocytes # (Auto) 0.8 K/mm3 (0.0-0.8); Monocytes % (Auto) 7.1 % (0.0-7.3); Platelet Count 406 K/mm3 (140-440); Red Blood Count 4.74 M/mm3 (3.65-5.03)
[2020-01-29 10:38] LABS: BUN/Creatinine Ratio 18; Blood Urea Nitrogen 9 mg/dL (7-17); Calcium 8.9 mg/dL (8.4-10.2); Hemolysis Index 74
--- NOTE | 2020-01-29 11:38 | Emergency Department Report ---
ED Chest Pain HPI - General Chief Complaint: Chest Pain Stated Complaint: CP Time Seen by Provider: 01/29/20 11:21 Source: patient Mode of arrival: Ambulatory Limitations: No Limitations - History of Present Illness Initial Comments: 34-year-old female with intermittent chest pain times at least 1 month. She tells me that she went to [facility] with these symptoms approximately 1 month ago. She had an abnormal test and it sounds like she had a CT of her chest thereafter. She states that the scan was negative. Patient describes substernal chest pressure which sometimes is exertional. She states that it is occurring with lesser exertion today. Sometimes it increases with deep inspiration but it is not pleuritic in general. She describes it as a pressure. She does not complain of shortness of breath nausea or vomiting. She states that she sweats at night but attributes this to having a hysterectomy. She also states that she had a vein stripping procedure in both legs about a month ago. Patient has no personal history of prior cardiac work-up with a lumber checker. She has had no prior stress testing. She has not been admitted for chest pain in the past. She states her father had a myocardial infarction. Her initial blood pressure was elevated but on recheck it was within normal limits. She does not give a history of hyperlipidemia or diabetes. She has never smoked she states. MD Complaint: chest pain -: Gradual, month(s) - Related Data Home Medications Medication Instructions Recorded Confirmed Last Taken ALBUTEROL Inhaler(NF) [VENTOLIN 2 puff IH PRN PRN 11/22/18 06/23/19 12/29/18 Inhaler(NF)] Previous Rx's Medication Instructions Recorded Last Taken Type cefUROXime [Ceftin] 500 mg PO Q12H #20 tablet 03/01/19 06/22/19 08:00 Rx HYDROcodone/APAP 10-325 [[place] 0.5 - 1 each PO Q6HR PRN #25 tablet 06/23/19 Unknown Rx 10-325 mg TAB] HYDROcodone/APAP 5-325 [[place] 1 each PO Q6HR PRN #30 tablet 06/23/19 Unknown Rx 5-325 mg TAB] Metoclopramide [Reglan] 10 mg PO QID PRN #30 tablet 07/12/19 Unknown Rx Promethazine HCl [Phenergan SUPPOS] 25 mg RC Q6HR PRN #15 supp.rect 07/12/19 Unknown Rx levoFLOXacin [Levaquin] 750 mg PO QDAY #10 tablet 07/12/19 Unknown Rx oxyCODONE /ACETAMINOPHEN [Percocet 1 tab PO Q6HR PRN #10 tablet 07/12/19 Unknown Rx 5/325] Allergies Allergy/AdvReac Type Severity Reaction Status Date / Time aspirin Allergy Itching Verified 06/22/19 14:36 silk tape Allergy Itching Uncoded 06/22/19 14:36 Heart Score - HEART Score History: Moderately suspicious EKG: Non-specific Age: < 45 Risk factors: 1-2 risk factors Troponin: < normal limit HEART Score: 3 - Critical Actions Critical Actions: 0-3 pts:0.9-1.7%risk of adverse cardiac event.Candidate for discharge ED Review of Systems ROS: Stated complaint: CP Other details as noted in HPI Constitutional: denies: chills, fever Eyes: denies: eye pain, vision change ENT: denies: ear pain, throat pain Respiratory: denies: cough, shortness of breath Cardiovascular: chest pain. denies: palpitations Endocrine: no symptoms reported Gastrointestinal: denies: abdominal pain, nausea Genitourinary: denies: urgency, dysuria, discharge Musculoskeletal: denies: back pain, joint swelling, arthralgia Skin: denies: rash, lesions Neurological: denies: headache, weakness, paresthesias Psychiatric: denies: anxiety, depression Hematological/Lymphatic: denies: easy bleeding, easy bruising ED Past Medical Hx - Past Medical History Previous Medical History?: Yes Hx Hypertension: Yes (No meds) Hx GERD: Yes Hx Headaches / Migraines: Yes (MIGRAINES) Hx Kidney Stones: Yes Hx Asthma: Yes (last inhaler use in December 2018) Additional medical history: Ovarian cysts. Morbid Obesity, MRSA x 4 (face, buttocks, legs) - Surgical History Past Surgical History?: Yes Hx Cholecystectomy: Yes Hx Appendectomy: Yes Additional Surgical History: 3 c sections and tubal ligation, appendix removal, hernia surgery, HYSTERECTOMY, Had left ovary removed this past Thursday - Social History Smoking Status: Never Smoker Substance Use Type: None - Medications Home Medications: Home Medications Medication Instructions Recorded Confirmed Last Taken Type ALBUTEROL Inhaler(NF) [VENTOLIN 2 puff IH PRN PRN 11/22/18 06/23/1919 History Inhaler(NF)] cefUROXime [Ceftin] 500 mg PO Q12H #20 tablet 03/01/19 06/23/19 06/22/19 08:00 Rx HYDROcodone/APAP 10-325 [[place] 0.5 - 1 each PO Q6HR PRN #25 tablet 06/23/19 Unknown Rx 10-325 mg TAB] HYDROcodone/APAP 5-325 [[place] 1 each PO Q6HR PRN #30 tablet 06/23/19 Unknown Rx 5-325 mg TAB] Metoclopramide [Reglan] 10 mg PO QID PRN #30 tablet 07/12/19 Unknown Rx Promethazine HCl [Phenergan SUPPOS] 25 mg RC Q6HR PRN #15 supp.rect 07/12/19 Unknown Rx levoFLOXacin [Levaquin] 750 mg PO QDAY #10 tablet 07/12/19 Unknown Rx oxyCODONE /ACETAMINOPHEN [Percocet 1 tab PO Q6HR PRN #10 tablet 07/12/19 Unknown Rx 5/325] ED Physical Exam - General Limitations: Physical Limitation General appearance: alert, in no apparent distress, obese - Head Head exam: Present: atraumatic, normocephalic - Eye Eye exam: Present: normal appearance. Absent: scleral icterus - ENT ENT exam: Present: mucous membranes moist - Neck Neck exam: Present: normal inspection - Respiratory Respiratory exam: Present: normal lung sounds bilaterally. Absent: respiratory distress - Cardiovascular Cardiovascular Exam: Present: regular rate, normal rhythm. Absent: systolic murmur, diastolic murmur, rubs, gallop - GI/Abdominal GI/Abdominal exam: Present: soft, normal bowel sounds. Absent: distended, tenderness, guarding, rebound - Extremities Exam Extremities exam: Present: normal inspection, full ROM, normal capillary refill. Absent: tenderness, pedal edema, joint swelling, calf tenderness - Back Exam Back exam: Present: normal inspection - Neurological Exam Neurological exam: Present: alert, oriented X3, CN II-XII intact. Absent: motor sensory deficit - Psychiatric Psychiatric exam: Present: normal affect, normal mood - Skin Skin exam: Present: warm, dry, intact, normal color. Absent: rash ED Course Vital Signs 01/29/20 01/29/20 09:35 11:25 Temperature 98.1 F Pulse Rate 101 H 96 H Respiratory 20 18 Rate Blood Pressure 154/114 Blood Pressure 123/64 [Left] O2 Sat by Pulse 97 99 Oximetry - Reevaluation(s) Reevaluation #1: Patient is referred to the hospitalist staff for further care and evaluation. Additional laboratory testing is pending. 01/29/20 12:21 GARETT score - Garett Score Age > 65: (0) No Aspirin use within the Past 7 Days: (0) No 3 or more CAD Risk Factors: (0) No 2 or more Angina events in past 24 hrs: (0) No Known CAD with more than 50% Stenosis: (0) No Elevated Cardiac Markers: (0) No ST Deviation Greater than 0.5mm: (0) No GARETT Score: 0 ED Medical Decision Making - Lab Data Result diagrams: 01/29/20 09:40 01/29/20 09:40 Laboratory Results - last 24 hr 01/29/20 01/29/20 09:40 09:40 WBC 10.7 RBC 4.74 Hgb 13.8 Hct 41.7 MCV 88 MCH 29 MCHC 33 RDW 14.0 Plt Count 406 Lymph % (Auto) 17.8 [place] % (Auto) 7.1 Eos % (Auto) 0.3 Baso % (Auto) 0.8 Lymph # 1.9 [place] # 0.8 Eos # 0.0 Baso # 0.1 Seg Neutrophils % 74.0 H Seg Neutrophils # 7.9 H Sodium 140 Potassium 4.4 Chloride 104.5 Carbon Dioxide 19 L Anion Gap 21 BUN 9 Creatinine 0.5 L Estimated GFR > 60 BUN/Creatinine Ratio 18 Glucose 99 Calcium 8.9 Troponin T < 0.010 - EKG Data -: EKG Interpreted by Tn EKG shows normal: sinus rhythm, axis, intervals, QRS complexes, ST-T waves Rate: tachycardia (100) - EKG Data Interpretation: nonspecific ST-T wave gurjit - Radiology Data Radiology results: image reviewed (No acute process) Critical care attestation.: If time is entered above; I have spent that time in minutes in the direct care of this critically ill patient, excluding procedure time. ED Disposition Clinical Impression: Morbid obesity Chest pain Qualifiers: Chest pain type: unspecified Qualified Code(s): R07.9 - Chest pain, unspecified Disposition: OP ADMIT IP TO THIS HOSP Is pt being admited?: Yes Does the pt Need Aspirin: Yes Condition: Stable Instructions: Chest Pain (ED) Referrals: PRIMARY CARE, [Primary Care Provider] - 3-5 Days Time of Disposition: 12:22
--- NOTE | 2020-01-29 12:30 | History and Physical Report ---
History of Present Illness Chief complaint: I have pain in my chest History of present illness: 34 YO Female with Obesity Hypoventilation, HTN,Anxiety, GERD, Migraine Headache, Asthma, Nephrolithiasis presents to ED for evaluation. Pt states that she has experienced pain in her chest over the past 1 month. Pt states that her pain is 4/10, Constant, not worsened with exertion, not relieved with rest, nonradiating, epigastric. Patient transported to [facility] for further evaluation and care. Patient seen and evaluated in the emergency department. Lab and imaging studies reviewed. Patient found to have atypical chest pain. Patient placed in observation status and admitted to telemetry and placed on chest pain protocol. Echocardiogram ordered and is pending at time of admission. Patient initiated on PPI therapy and supportive care as well as anxiolytic therapy. Patient acknowledges feeling anxious. Patient denies fever, chills, palpitation, productive cough, skin rash, recent ill contacts. Patient acknowledges extensive family history of coronary artery disease. Patient also found to have an elevated d-dimer. CT a of the chest is ordered and is pending at time of admission. Prior admission on 03/22/2019 reviewed. All medication listed at time of admission has been reconciled. Past History Past Medical History: GERD, hypertension Past Surgical History: appendectomy, cholecystectomy, , hernia repair, Other (left ovary, tubal ligation) Social history: single. denies: smoking, alcohol abuse Family history: CAD, hypertension Medications and Allergies Allergies Allergy/AdvReac Type Severity Reaction Status Date / Time aspirin Allergy Itching Verified 06/22/19 14:36 silk tape Allergy Itching Uncoded 06/22/19 14:36 Home Medications Medication Instructions Recorded Confirmed Last Taken Type ALBUTEROL Inhaler(NF) [VENTOLIN 2 puff IH PRN PRN 11/22/18 06/23/19 12/29/18 History Inhaler(NF)] cefUROXime [Ceftin] 500 mg PO Q12H #20 tablet 03/01/19 06/23/19 06/22/19 08:00 Rx HYDROcodone/APAP 10-325 [[place] 0.5 - 1 each PO Q6HR PRN #25 tablet 06/23/19 Unknown Rx 10-325 mg TAB] HYDROcodone/APAP 5-325 [[place] 1 each PO Q6HR PRN #30 tablet 06/23/19 Unknown Rx 5-325 mg TAB] Metoclopramide [Reglan] 10 mg PO QID PRN #30 tablet 07/12/19 Unknown Rx Promethazine HCl [Phenergan SUPPOS] 25 mg RC Q6HR PRN #15 supp.rect 07/12/19 Unknown Rx levoFLOXacin [Levaquin] 750 mg PO QDAY #10 tablet 07/12/19 Unknown Rx oxyCODONE /ACETAMINOPHEN [Percocet 1 tab PO Q6HR PRN #10 tablet 07/12/19 Unknown Rx 5/325] Review of Systems Constitutional: no weight loss, no weight gain, no chills Ears, nose, mouth and throat: no ear pain, no ear discharge, no tinnitis, no nasal congestion Breasts: no change in shape, no swelling Cardiovascular: chest pain, no orthopnea, no rapid/irregular heart beat, no edema, no lightheadedness, no shortness of breath, no claudication, no phlebitis, no leg edema Respiratory: no cough, no cough with sputum, no hemoptysis, no dyspnea on exertion Gastrointestinal: nausea, no vomiting, no diarrhea, no constipation, no change in bowel habits Genitourinary Female: no flank pain, no menorrhagia, no dysuria, no urgency, no urge incontinence Rectal: no pain, no incontinence Musculoskeletal: no neck pain, no shooting arm pain, no arm numbness/tingling, no low back pain, no shooting leg pain, no redness of joints Integumentary: no rash, no pruritis, no sores, no wounds, no jaundice, no boils Neurological: no head injury, no transient paralysis, no parathesias, no tingling, no seizures Psychiatric: anxiety, no memory loss, no sleep disturbances, no suicidal ideation, no disorientation Endocrine: no cold intolerance, no excessive thirst, no polydipsia, no polyuria, no nocturia Hematologic/Lymphatic: no easy bruising, no easy bleeding, no lymphadenopathy Allergic/Immunologic: no persistent infections, no anaphylaxis Exam - Constitutional Vitals: Temp Pulse Resp BP Pulse Ox 98.1 F 96 H 18 123/64 99 01/29/20 09:35 01/29/20 11:25 01/29/20 11:25 01/29/20 11:25 01/29/20 11:25 General appearance: Present: no acute distress, well-nourished, obese - EENT Eyes: Present: PERRL ENT: hearing intact, clear oral mucosa - Neck Neck: Present: supple, normal ROM - Respiratory Respiratory effort: normal Respiratory: bilateral: CTA - Cardiovascular Heart Sounds: Present: S1 & S2. Absent: rub, click - Extremities Extremities: pulses symmetrical, No edema Peripheral Pulses: within normal limits - Abdominal General gastrointestinal: Present: soft, non-tender, non-distended, normal bowel sounds Female genitourinary: Present: normal - Integumentary Integumentary: Present: clear, warm, dry - Musculoskeletal Musculoskeletal: gait normal, strength equal bilaterally - Psychiatric Psychiatric: appropriate mood/affect, intact judgment & insight, agitated - Neurologic Neurologic: CNII-XII intact, moves all extremities HEART Score - HEART Score EKG: Non-specific Age: < 45 Risk factors: 1-2 risk factors Troponin: Troponin T < 0.010 ng/mL (0.00-0.029) 01/29/20 09:40 Troponin: < normal limit - Critical Actions Critical Actions: 0-3 pts:0.9-1.7%risk of adverse cardiac event.Candidate for discharge Results - Labs CBC & Chem 7: 01/29/20 09:40 01/29/20 09:40 Labs: Abnormal lab results 01/29/20 01/29/20 Range/Units 09:40 09:40 Seg Neutrophils % 74.0 H (40.0-70.0) % Seg Neutrophils # 7.9 H (1.8-7.7) K/mm3 Carbon Dioxide 19 L (22-30) mmol/L Creatinine 0.5 L (0.7-1.2) mg/dL Assessment and Plan - Patient Problems (1) Chest pain Current Visit: Yes Status: Acute Qualifiers: Chest pain type: unspecified Qualified Code(s): R07.9 - Chest pain, unspecified Plan to address problem: chest pain protocol: Serial cardiac enzymes, EKG, telemetry, BNP, d-dimer, submental oxygen, pain control, lipid panel. Patient has extensive family history of coronary artery disease. Will admit for observation and conduct serial cardiac enzymes, repeat EKG, and echocardiogram for re-stratification. Outpatient cardiology follow-up. (2) Obesity hypoventilation syndrome Current Visit: Yes Status: Acute Plan to address problem: Submental oxygen, nebulizer therapy, pulse oximetry, outpatient pulmonary f ollow-up for sleep study. (3) Gastroesophageal reflux disease Current Visit: Yes Status: Acute Qualifiers: Esophagitis presence: without esophagitis Qualified Code(s): K21.9 - Gastro-esophageal reflux disease without esophagitis Plan to address problem: PPI therapy, Carafate therapy, supportive care, outpatient GI follow-up for endoscopy. (4) Generalized anxiety disorder Current Visit: Yes Status: Acute Plan to address problem: Anxiolytic therapy with Ativan as needed, supportive care. Outpatient psychiatry follow-up. (5) DVT prophylaxis Current Visit: Yes Status: Acute Plan to address problem: SCD to bilateral lower extremities while in bed, patient is ambulatory.
[2020-01-29] MEDS ORDERED: ASPIRIN 81 MG TAB CHEW PO STA (12:42)
[2020-01-29 12:52] LABS: Alanine Aminotransferase 16 units/L (7-56); Albumin 4.1 g/dL (3.9-5); INR 0.97 (0.87-1.13)
[2020-01-29 12:53] LABS: Bilirubin,Direct < 0.2 mg/dL (0-0.2); Partial Thromboplastin Time 28.8 Sec. (24.2-36.6)
[2020-01-29] MEDS ORDERED: PROMETHAZINE 25 MG RECT SUPP PR PRN (13:00)
[2020-01-29] MEDS ORDERED: METOCLOPRAMIDE 10 MG TAB PO PRN (13:00)
[2020-01-29] MEDS ORDERED: ONDANSETRON 4 MG/2 ML INJ IV PRN (13:02)
[2020-01-29] MEDS ORDERED: ACETAMINOPHEN 325 MG TAB PO PRN (13:02)
[2020-01-29] MEDS ORDERED: LORazepam 2 MG/ML VIAL IV ONE (13:03)
[2020-01-29] MEDS ORDERED: SUCRALFATE 1 GM/10 ML ORAL LIQD PO ONE (13:04)
[2020-01-29 13:07] LABS: Chol/HDL Ratio 3.54 %; HDL Cholesterol 48 mg/dL (40-59); LDL Cholesterol,Direct 120 mg/dL (50-130)
[2020-01-29] MEDS ORDERED: LORazepam 2 MG/ML VIAL ONE (13:28)
[2020-01-29] MEDS ORDERED: SUCRALFATE 1 GM/10 ML ORAL LIQD ONE (13:29)
--- NOTE | 2020-01-29 15:10 | Cat Scan Report ---
CT angio chest INDICATION / CLINICAL INFORMATION: MAIN: chest pain, elevated d dimer OMNIPAQUE 350 100ML IV IN LEFT SHOULDER-UNABLE TO RAISE THAT A RM . TECHNIQUE: Precontrast bolus timing images were obtained followed by postcontrast axial and reformatted images. 3-plane MIP reconstructions were performed at an independent workstation by the technologist. All CT scans at this location are performed using CT dose reduction for ALARA by means of automated exposure control. COMPARISON: None available. FINDINGS: Pulmonary arterial enhancement is normal bilaterally. No evidence of pulmonary embolus. No acute lung disease. Mediastinal images are normal. Limited upper abdominal and skeletal structures are unremarkable. IMPRESSION: 1. No evidence of pulmonary embolus or acute disease. Signer Name: Jethro Douglass MD Signed: 01/29/2020 3:06 PM Workstation Name: [id number]
[2020-01-29] MEDS ORDERED: MELATONIN 5 MG TAB PO ONE (22:00)
[2020-01-29] MEDS ORDERED: BUTALB/ACETAMINOPHEN/CAFFEINE TAB PO ONE (22:15)
[2020-01-30 08:46] VITALS: BP 127/85
--- NOTE | 2020-01-30 11:17 | Consultation ---
History of Present Illness Consult date: 01/30/20 Consult reason: chest pain History of present illness: This is a 34-year old woman with no prior cardiac history whom is admitted with atypical chest pain. Chest pain is reproducible with palpitation. Cycled troponin are normal and her ECG is benign, normal sinus rhythm. A cardiac consultation has been requested for further evaluation. Past History Past Surgical History: appendectomy, cholecystectomy, , hernia repair, Other (left ovary, tubal ligation) Social history: single. denies: smoking, alcohol abuse Family history: CAD, hypertension Medications and Allergies Allergies Allergy/AdvReac Type Severity Reaction Status Date / Time aspirin Allergy Itching Verified 06/22/19 14:36 silk tape Allergy Itching Uncoded 06/22/19 14:36 Home Medications Medication Instructions Recorded Confirmed Last Taken Type ALBUTEROL Inhaler(NF) [VENTOLIN 2 puff IH PRN PRN 11/22/18 06/23/19 12/29/18 History Inhaler(NF)] cefUROXime [Ceftin] 500 mg PO Q12H #20 tablet 03/01/19 06/23/19 06/22/19 08:00 Rx HYDROcodone/APAP 10-325 [[place] 0.5 - 1 each PO Q6HR PRN #25 tablet 06/23/19 Unknown Rx 10-325 mg TAB] HYDROcodone/APAP 5-325 [[place] 1 each PO Q6HR PRN #30 tablet 06/23/19 Unknown Rx 5-325 mg TAB] Metoclopramide [Reglan] 10 mg PO QID PRN #30 tablet 07/12/19 Unknown Rx Promethazine HCl [Phenergan SUPPOS] 25 mg RC Q6HR PRN #15 supp.rect 07/12/19 Unknown Rx levoFLOXacin [Levaquin] 750 mg PO QDAY #10 tablet 07/12/19 Unknown Rx oxyCODONE /ACETAMINOPHEN [Percocet 1 tab PO Q6HR PRN #10 tablet 07/12/19 Unknown Rx 5/325] Active Meds: Active Medications Acetaminophen (Tylenol) 650 mg PO Q4H PRN PRN Reason: Pain MILD(1-3)/Fever >100.5/GUERRERO Last Admin: 01/29/20 15:32 Dose: 650 mg Documented by: Metoclopramide HCl (Reglan) 10 mg PO QID PRN PRN Reason: Nausea Ondansetron HCl (Zofran) 4 mg IV Q8H PRN PRN Reason: Nausea And Vomiting Pneumococcal Polyvalent Vaccine (Pneumovax 23) 0.5 ml IM .ONCE ONE Stop: 01/30/20 12:01 Promethazine HCl (Phenergan) 25 mg MA Q6HR PRN PRN Reason: Nausea Sodium Chloride (Sodium Chloride Flush Syringe 10 Ml) 10 ml IV PRN PRN PRN Reason: LINE FLUSH Sodium Chloride (Sodium Chloride Flush Syringe 10 Ml) 10 ml IV BID MAGALY Last Admin: 01/29/20 22:03 Dose: 10 ml Documented by: Sodium Chloride (Sodium Chloride Flush Syringe 10 Ml) 10 ml IV PRN PRN PRN Reason: LINE FLUSH Physical Examination Vital Signs Temp Pulse Resp BP Pulse Ox 98.1 F 101 H 20 154/114 97 01/29/20 09:35 01/29/20 09:35 01/29/20 09:35 01/29/20 09:35 01/29/20 09:35 General appearance: no acute distress, obese HEENT: Positive: PERRL Neck: Positive: trachea midline Cardiac: Positive: Reg Rate and Rhythm Lungs: Positive: Decreased Breath Sounds Neuro: Positive: Grossly Intact Results 01/29/20 09:40 01/29/20 09:40 Cardiac Enzymes 01/29/20 Range/Units 12:07 AST 15 (5-40) units/L Coagulation 01/29/20 Range/Units 12:07 PT 13.0 (12.2-14.9) Sec. INR 0.97 (0.87-1.13) APTT 28.8 (24.2-36.6) Sec. Lipids 01/29/20 Range/Units 12:07 Triglycerides 84 (2-149) mg/dL Cholesterol 170 (50-199) mg/dL HDL Cholesterol 48 (40-59) mg/dL Cholesterol/HDL Ratio 3.54 % Comprehensive Metabolic Panel 01/29/20 Range/Units 12:07 Direct Bilirubin < 0.2 (0-0.2) mg/dL AST 15 (5-40) units/L ALT 16 (7-56) units/L Alkaline Phosphatase 74 (35-129) units/L Total Protein 7.5 (6.3-8.2) g/dL Albumin 4.1 (3.9-5) g/dL Assessment and Plan - Patient Problems (1) Chest pain Current Visit: Yes Status: Acute Qualifiers: Qualified Code(s): R07.9 - Chest pain, unspecified Plan to address problem: Chest pain, musculoskeletal ECG is benign no evidence of PE by chest CTA No ischemic workup is indicated for musculoskeletal chest pain; stress thallium test has been canceled.
[2020-01-30] MEDS ORDERED: FLU VACC QUAD 2019-20 (3 YR UP)/PF 60 MCG/0.5 ML SYRINGE IM ONE (12:00)
[2020-01-30] MEDS ORDERED: PNEUMOCOCCAL 23 Valent 0.5 ML VIAL IM ONE (12:00)
--- NOTE | 2020-01-30 13:05 | Discharge Summary ---
Providers - Providers Date of Admission: 01/29/20 13:02 Attending physician: MELVIN FOSTER MD 01/29/20 Consult to Cardiac Rehabilitation [CONS] Routine Reason For Exam: Phase I Consult to Cardiac Rehabilitation [CONS] Routine Reason For Exam: Phase I 01/30/20 07:37 Consult to Physician [CONS] Routine Comment: Consulting Provider: JOSE CALDERON Physician Instructions: Reason For Exam: chest pain Primary care physician: IRRIGATIONIST DESIGNER Hospitalization Reason for admission: Chest pain Condition: Stable Hospital course: 4 YO Female with Obesity Hypoventilation, HTN,Anxiety, GERD, Migraine Headache, Asthma, Nephrolithiasis presents to ED for evaluation. Pt states that she has experienced pain in her chest over the past 1 month. Pt states that her pain is 4/10, Constant, not worsened with exertion, not relieved with rest, nonradiating, epigastric. Patient transported to [facility] for further evaluation and care. Patient seen and evaluated in the emergency department. Lab and imaging studies reviewed. Patient found to have atypical chest pain. Patient placed in observation status and admitted to telemetry and placed on chest pain protocol. Echocardiogram ordered and is pending at time of admission. Patient initiated on PPI therapy and supportive care as well as anxiolytic therapy. Patient acknowledges feeling anxious. Patient denies fever, chills, palpitation, productive cough, skin rash, recent ill contacts. Patient acknowledges extensive family history of coronary artery disease. Patient also found to have an elevated d-dimer. CT a of the chest is ordered and is pending at time of admission. Prior admission on 03/22/2019 reviewed. All medication listed at time of admission has been reconciled. Patient admission was placed on chest pain protocol she has had a recent stress test at [facility] that she reported. During her examination and also evaluation by cardiology we both confirmed that her pain is musculoskeletal and reproducible. She was also sent to the hospital by family who has not seen her in a year due to the concern based on her previous life although she does not have any personal heart disease history. She is clinically stable and chest pain-free at this time Recommended Weightloss, she requested referral bariatric surgeon and also to grab operator for sleep study. 1) Atypical Chest pain secondary to Costochondritis Current Visit: Yes Status: Acute Qualifiers: Chest pain type: unspecified Qualified Code(s): R07.9 - Chest pain, unspecified Plan to address problem: chest pain protocol: Serial cardiac enzymes, EKG, telemetry, BNP, d-dimer, submental oxygen, pain control, lipid panel. Patient has extensive family history of coronary artery disease. (2) Obesity hypoventilation syndrome Current Visit: Yes Status: Acute Plan to address problem: Submental oxygen, nebulizer therapy, pulse oximetry, outpatient pulmonary follow-up for sleep study. (3) Gastroesophageal reflux disease Current Visit: Yes Status: Acute Qualifiers: Esophagitis presence: without esophagitis Qualified Code(s): K21.9 - Gastro-esophageal reflux disease without esophagitis Plan to address problem: PPI therapy, Carafate therapy, supportive care, outpatient GI follow-up for endoscopy. (4) Generalized anxiety disorder Current Visit: Yes Status: Acute Plan to address problem: Anxiolytic therapy with Ativan as needed, supportive care. Outpatient psychiatry follow-up. Disposition: TO HOME OR SELFCARE Time spent for discharge: 35 minutes Core Measure Documentation - Palliative Care Palliative Care/ Comfort Measures: Not Applicable - Core Measures Any of the following diagnoses?: none Exam - Physical Exam Narrative exam: VITAL SIGNS: Reviewed. GENERAL: The patient appears normally developed, morbidly obese vital signs as documented. HEAD: No signs of head trauma. EYES: Pupils are equal. Extraocular motions intact. EARS: Hearing grossly intact. MOUTH: Oropharynx is normal. NECK: No adenopathy, no JVD. CHEST: Chest with clear breath sounds bilaterally. No wheezes, rales, or rhonchi. CARDIAC: Mildly tender on palpation to chest wall regular rate and rhythm. S1 and S2, without murmurs, gallops, or rubs. VASCULAR: No Edema. Peripheral pulses normal and equal in all extremities. ABDOMEN: Soft, non tender and non distended. No rebound or guarding, and no masses palpated. Bowel Sounds normal. MUSCULOSKELETAL: Good range of motion of all major joints. Extremities without clubbing, cyanosis or edema. NEUROLOGIC EXAM: Alert and oriented x 3 No focal sensory or strength deficits. Speech normal. Follows commands. PSYCHIATRIC: Mood normal. SKIN: detial exam as documented in skin assessment - Constitutional Vitals: Temp Pulse Resp BP Pulse Ox 97.9 F 83 18 127/85 98 01/30/20 08:28 01/30/20 10:00 01/30/20 08:51 01/30/20 08:28 01/30/20 08:28 Plan Activity: advance as tolerated, fall precautions Diet: low fat Special Instructions: record daily weights, record daily BP diary, smoking cessation Follow up with: PRIMARY CARE, [Primary Care Provider] - 3-5 Days SP SHAH MD [Staff Physician] - 7 Days MACY PARISI MD [Staff Physician] - 7 Days HARI MAX MD [Staff Physician] - 7 Days
== END 2020-01-30 15:54 | disposition home or self-care (01) ==
LOC: ED 09:17 → 4A 13:02
PROVIDERS: ADMIT Internal Medicine; ATTEND Internal Medicine
DX: M94.0 Chondrocostal junction syndrome [Tietze] (principal); F41.1 Generalized anxiety disorder; K21.9 Gastro-esophageal reflux disease without esophagitis; E66.2 Morbid (severe) obesity with alveolar hypoventilation; I10 Essential (primary) hypertension; G43.909 Migraine, unspecified, not intractable, without status migrainosus; J45.909 Unspecified asthma, uncomplicated; Z23 Encounter for immunization; Z87.442 Personal history of urinary calculi; Z90.49 Acquired absence of other specified parts of digestive tract; Z98.51 Tubal ligation status; Z79.899 Other long term (current) drug therapy; Z88.6 Allergy status to analgesic agent; Z91.048 Other nonmedicinal substance allergy status; Z68.41 Body mass index [BMI] 40.0-44.9, adult
CPT/HCPCS: 36415; 71046; 71275; 80048; 80061; 80076; 82962; 83735; 83880; 84484; 85025; 85379; 85610; 85730; 87641; 90471; 90472; 90686; 90732; 93005; 96374; 99285; G0378; J2060; Q9967